=== PATIENT | female | born 1980 | race Caucasian/White ===

== ENCOUNTER 2020-06-20 12:54 | Outpatient (REF) | payer OTHER, SELFPAY ==
[2020-06-21 09:22] LABS: BV Int Neg Control Negative (Negative); BV Int Pos Control Positive (Positive)
[2020-06-21 13:32] LABS: C. trachomatis RNA TMA NOT DETECTED (NOT DETECTED); N. gonorrhoeae RNA TMA NOT DETECTED (NOT DETECTED)
== END 2020-06-20 12:55 | disposition home or self-care (01) ==
LOC: HO.LAB 12:54
PROVIDERS: PCP Internal Medicine Geriatric Medicine; Visit Provider Advanced Practice Midwife
DX: R10.2 Pelvic and perineal pain (principal); N84.1 Polyp of cervix uteri; Z31.69 Encounter for other general counseling and advice on procreation
CPT/HCPCS: 36415; 81003; 87480; 87491; 87510; 87591; 87660; 99202

== ENCOUNTER 2020-06-22 09:31 | Outpatient (REF) | payer OTHER, SELFPAY ==
--- NOTE | ~2020-06-22 | MM_ITS ---
EXAMINATION: MM SCREENING DIGITAL BREAST TOMOSYNTHESIS, BILATERAL CLINICAL INFORMATION: Screening. Asymptomatic. The lifetime risk of breast cancer based on the Tyrer-Cuzick Model is 10.5%. COMPARISON: Mammography: None. TECHNIQUE: Digital breast tomosynthesis is performed in both the craniocaudal and mediolateral oblique views along with computer-aided detection (CAD). Synthesized 2D images are generated from the tomosynthesis. FINDINGS: The breasts are extremely dense, which lowers the sensitivity of mammography (ACR BI-RADS breast composition Category d). No abnormal dominant mass or suspicious grouping of microcalcifications identified within the left breast. No region of architectural distortion identified. Within the right breast on mediolateral oblique projection, there is question of a 1.6 x 1.7 cm partially circumscribed density retroareolar region but which I cannot definitely find a correlate on craniocaudal view. This may represent a breast lobule or possible solid mass and spot compression film is recommended in mediolateral oblique projection. MM/MM tomosynthesis screening BI IMPRESSION: Question retroareolar left breast density for further evaluation as described. ASSESSMENT: BI-RADS 0: Incomplete - Need Additional Imaging Evaluation RECOMMENDATION: 1. Additional views of the left breast. 2. Targeted ultrasound if warranted after review of the additional views. 3. Radiology department staff will contact the patient for additional imaging. This patient's information was entered into a reminder system with a target due date for their next mammogram.
== END 2020-06-22 09:32 | disposition home or self-care (01) ==
LOC: HO.MAMMO 09:31
PROVIDERS: Visit Provider Internal Medicine Geriatric Medicine
DX: Z12.31 Encounter for screening mammogram for malignant neoplasm of breast (principal)
CPT/HCPCS: 77063; 77067

== ENCOUNTER 2020-06-28 14:02 | Outpatient (REF) | payer OTHER, SELFPAY ==
--- NOTE | ~2020-06-28 | MM_ITS ---
EXAMINATION: MM DIAGNOSTIC DIGITAL BREAST TOMOSYNTHESIS, RIGHT US DIAGNOSTIC ULTRASOUND BREAST, RIGHT CLINICAL INFORMATION: Recall from baseline exam for question of parenchymal asymmetry retroareolar right breast. COMPARISON: Mammography: 06/22/2020 (baseline). TECHNIQUE: Digital breast tomosynthesis is performed. 2D images are generated from the tomosynthesis. The following views are obtained: 3-D ML, 3-D spot MLO x2 Ultrasound right breast is targeted to the retroareolar position 7:00 through 11:00 position. Grayscale imaging and color Doppler are performed without and with harmonics. FINDINGS: The breasts are extremely dense, which lowers the sensitivity of mammography (ACR BI-RADS breast composition Category d). The additional views show no mass or architectural abnormality. Targeted ultrasound right breast demonstrates no cystic or solid mass or architectural abnormality. Results are discussed with the patient at time of visit, with assistance of an seismic interpreter. MM/MM tomosynthesis added views R IMPRESSION: Additional mammographic views show no persistent asymmetric density. Unremarkable targeted right breast ultrasound. ASSESSMENT: BI-RADS 1: Negative RECOMMENDATION: Routine annual mammography screening. This patient's information was entered into a reminder system with a target due date for their next mammogram.
== END 2020-06-28 14:03 | disposition home or self-care (01) ==
LOC: HO.MAMMO 14:02
PROVIDERS: PCP Internal Medicine Geriatric Medicine; Visit Provider Internal Medicine Geriatric Medicine
DX: N64.89 Other specified disorders of breast (principal)
CPT/HCPCS: 76642; 77061; 77065

== ENCOUNTER 2020-07-01 11:18 | Outpatient (REF) | payer OTHER, SELFPAY | END 2020-07-01 11:19 | disposition home or self-care (01) | LOC: HO.LAB 11:18 | PROVIDERS: PCP Internal Medicine Geriatric Medicine; Visit Provider Obstetrics & Gynecology | DX: N84.1 Polyp of cervix uteri (principal); D21.9 Benign neoplasm of connective and other soft tissue, unspecified | CPT/HCPCS: 57500; 88305; 99212 ==

== ENCOUNTER → 2020-07-14 11:50 | Outpatient (BNVA) | payer OTHER, SELFPAY | PROVIDERS: PCP Internal Medicine Geriatric Medicine; Visit Provider Obstetrics & Gynecology ==

== ENCOUNTER 2020-08-15 07:51 | Outpatient (REF) | payer OTHER, SELFPAY ==
[2020-08-15 10:09] LABS: HCG Quantitative 6809 mIU/mL
[2020-08-16 09:29] LABS: CT PCR NOT DETECTED (Not Detect.); NG PCR NOT DETECTED (Not Detect.)
== END 2020-08-15 07:52 | disposition home or self-care (01) ==
LOC: HO.LAB 07:51
PROVIDERS: PCP Internal Medicine Geriatric Medicine; Visit Provider Advanced Practice Midwife
DX: Z11.3 Encounter for screening for infections with a predominantly sexual mode of transmission (principal); R10.2 Pelvic and perineal pain; N92.6 Irregular menstruation, unspecified
CPT/HCPCS: 81025; 84702; 87491; 87591; 99212

== ENCOUNTER 2020-08-25 12:14 | Outpatient (REF) | payer OTHER, SELFPAY ==
--- NOTE | ~2020-08-25 | US_ITS ---
EXAMINATION: US OBSTETRICAL ULTRASOUND CLINICAL INFORMATION: Irregular menstruation. COMPARISON: None. LMP: 07/07/2020. Gestational age by maternal dates is 7 weeks 0 days. Estimated date of delivery by maternal dates is 04/13/2021. TECHNIQUE: Transabdominal first trimester OB ultrasound FINDINGS: There is a single intrauterine gestational sac with visible yolk sac, embryo/fetus, and cardiac activity. There is no significant subchorionic hemorrhage or hematoma. There is a large uterine fibroid in the left fundus adjacent to the gestational sac that measures 9.1 x 6.4 x 7.8 cm. HR: 109 beats per minute. CRL (crown rump length): 0.83 cm (6 weeks 6 days +/- 4 days). EBONY (estimated date of delivery): 04/14/2021 +/- 4 days. MATERNAL ADNEXA: The right maternal ovary measures 1.9 x 0.8 x 1.7 cm. The left maternal ovary measures 2.5 x 1.5 x 2.1 cm. There is a small 1.3 x 0.9 x 1.3 cm cyst. There is no significant maternal adnexal mass. No maternal pelvic ascites. US/US OB <= 14 weeks fetus IMPRESSION: 1. Single intrauterine gestation with ultrasound gestational age of 6 weeks 6 days +/- 4 days. 2. Estimated date of delivery is 04/14/2021 +/- 4 days. 3. low normal heart rate of 109 bpm. 4. large left fundal uterine fibroid abutting the gestational sac measuring 9.1 x 6.4 x 7.8 cm.
== END 2020-08-25 12:15 | disposition home or self-care (01) ==
LOC: HO.US 12:14
PROVIDERS: Visit Provider Advanced Practice Midwife
DX: O09.521 Supervision of elderly multigravida, first trimester (principal); Z3A.01 Less than 8 weeks gestation of pregnancy
CPT/HCPCS: 76801

== ENCOUNTER 2020-09-08 03:05 | Emergency (ER) | payer OTHER, SELFPAY ==
--- NOTE | ~2020-09-08 | US_ITS ---
EXAMINATION: US OBSTETRICAL ULTRASOUND CLINICAL INFORMATION: Vaginal bleeding COMPARISON: 08/25/2020. LMP: 07/07/2020. TECHNIQUE: Transabdominal sonographic imaging of the pelvis. FINDINGS: Prominent uterine fibroid at the fundus measuring 8.8 x 7.2 x 8.5 cm. There is a single intrauterine gestational sac with visible yolk sac and fetus. There is no motion detected. No heart rate detected. HR: 0 beats per minute. CRL (crown rump length): 1.0 cm (7 weeks 1 day +/- 4 days). Of note, on the prior ultrasound 2 weeks ago gestational age by ultrasound was 6 weeks 4 days, therefore showing no significant growth. MATERNAL ADNEXA: The right maternal ovary measures 2.1 x 1.7 x 1.2 cm. No adnexal mass. The left maternal ovary measures 3.2 x 2.5 x 2.2 cm. No adnexal mass. No maternal pelvic ascites. US/US OB <= 14 weeks fetus IMPRESSION: Intrauterine now with lack of heart rate and no significant growth from prior imaging. This is consistent with demise. This critical result was discussed with Heena Lee MD by telephone at 09/08/2020 5:51 AM and it was ascertained that the content and urgency of the report was understood at the time of direct communication.
[2020-09-08 03:22] VITALS: BP 116/74; PULSE 68; RESP 17; TEMP 36.8; O2SAT 100; BMI 25.8
[2020-09-08 03:41] LABS: Glucose Urine UA NEG (NEG); Leukocyte Esterase Urine NEG (NEG); Nitrite Urine NEG (NEG); Specific Gravity - Urine 1.025 (1.005-1.025); Urine Blood 1+ (NEG); Urine Ketones NEG (NEG); Urine Protein NEG (NEG-TRACE)
[2020-09-08 03:46] LABS: Appearance Urine CLEAR; Color Urine YELLOW
[2020-09-08 03:47] LABS: UPreg QC Valid YES; Urine Pregnancy POSITIVE (NEGATIVE)
[2020-09-08 03:53] LABS: Bacteria Urine 2+ /LPF; Mucus Urine 1+ /LPF; Squamous Epithelial Cell Urine 1+ /LPF
--- NOTE | 2020-09-08 04:10 | ED.PREGNANCY ---
HPI - General Chief complaint: Vaginal Bleeding Stated complaint: 9 Weeks /Spotting Time Seen by Provider: 09/08/20 04:00 Source: patient Mode of arrival: ambulatory Limitations: no limitations History of Present Illness HPI Narrative: Patient comes emergency room complaining of vaginal bleeding. Patient is a at 9 weeks of gestational age. Patient states that her has been unremarkable until this morning, patient went to the bathroom and when she wiped, she saw a blood clot. Patient denies dysuria, no abdominal pain. MD Complaint: vaginal bleeding Related Data Allergies Allergy/AdvReac Type Severity Reaction Status Date / Time No Known Allergies Allergy Verified 09/08/20 03:21 [No Known Allergies*] Review of Systems Review of Systems: Constitutional : No Weight loss, No Fever, No Chills, No Night Sweats, No Fatigue, No Malaise ENT/Mouth : No Hearing loss, No Ear Pain, No Nasal Congestion, No Sinus Pain, No Hoarseness, No sore throat, No Rhinorrhea, No Swallowing Difficulty Eyes: No Eye Pain, No Swelling, No Redness, No Foreign Body, No Discharge, No Vision Changes Cardiovascular : No Chest Pain, No SOB, No Dyspnea on Exertion, No Orthopnea, No Edema, No Palpitations Respiratory : No Cough, No Sputum, No Wheezing, No Smoke Exposure, No Dyspnea Gastrointestinal : No Nausea, No Vomiting, No Diarrhea, No Constipation, No abdominal Pain, No Hematochezia, No Melena Genitourinary : Complaining of 1 episode of vaginal bleeding, No Dysuria, No Urinary Frequency, No Hematuria, No Urinary Incontinence, No Urgency, No Flank Pain, No Urinary Flow Changes, No Hesitancy Musculoskeletal : No joint pain, No Myalgias, No Joint Swelling Skin : No Skin Lesions, No rash Neuro : No Weakness, No Numbness, No Paresthesias, No Loss of Consciousness, No Dizziness, No Headache Psych : No Anxiety/Panic, No Depression, No SI/HI/AH/VH, No Social Issues, Heme/Lymph: No Bruising, No Bleeding,No Lymphadenopathy Endocrine : No Polyuria, No Polydipsia, No Temperature Intolerance PMFSH Past Medical History Medical History Abscess of Bartholin's gland Denial Family History Family History Sister Diabetes Father Heart attack Mother Thyroid disease Social History Social History Alcohol intake: current Advance Directives: No Advance Directives Information Provided: No Patient : Yes Physical Exam Vital Signs: Vital Signs: Last Vital Signs Temp 98.2 F 09/08/20 03:22 Pulse 70 09/08/20 04:42 Resp 16 09/08/20 04:42 BP 111/64 09/08/20 04:42 Pulse Ox 100 09/08/20 04:42 Body Mass Index 25.8 Appearance: Alert. Oriented X3. No acute distress. Eyes: Pupils equal, round and reactive to light. ENT: Pharynx normal. Neck: Normal inspection. Neck supple. No lymph nodes noted. No crepitus CVS: Normal heart rate and rhythm. Pulses normal. Normal S1 and S2 Respiratory: No respiratory distress. Breath sounds normal. No Wheezing. No rales Abdomen: Soft and nontender. No rigidity. No distention. : Cervical os is open, scant vaginal bleeding Skin: Skin warm and dry. Normal skin color. Normal skin turgor. Extremities: No lower extremity edema. No lower extremity edema. No Lacerations. No Rash Neuro: Oriented X 3. No motor deficit. No sensory deficit. Moving all extermities. No slurred speech. Course Course Course Narrative: I discussed with the patient that she has a demise. I discussed the patient with Dr. Kirk. At the moment, no treatment recommended here in the emergency room. Patient is to follow-up with the OBGYN office, they will discuss with her different options. MDM - OB/Uterine Contractions Lab Data Result diagrams: 09/08/20 04:49 09/08/20 04:49 Labs: Lab Results 09/08/20 09/08/20 09/08/20 Range/Units 03:32 03:32 04:49 WBC 7.2 (4.8-10.8) X10*3/uL RBC 4.15 L (4.20-5.50) X10*6/uL Hgb 11.4 L (12.0-16.0) g/dl Hct 35.5 L (37-47) % MCV 85.5 (80-98) fL MCH 27.5 (27.0-33.0) pg MCHC 32.1 (31.0-35.0) g/dl RDW 12.7 (11.0-16.0) % Plt Count 206 (160-400) X10*3/uL MPV 12.6 H (9.4-12.3) fL Immature Gran % (Auto) 0.1 (0.0-0.4) % Neut % (Auto) 52.5 (45-73) % Lymph % (Auto) 36.8 (20-40) % [place] % (Auto) 8.1 (2-11) % Eos % (Auto) 2.1 (0-4) % Baso % (Auto) 0.4 (0-2) % Lymph # (Auto) 2.6 (1.2-4.9) X10*3/uL [place] # (Auto) 0.6 (0.1-1.2) X10*3/uL Eos # (Auto) 0.2 (0.0-0.4) X10*3/uL Baso # (Auto) 0.0 (0.0-0.2) X10*3/uL Abs Immat Gran (auto) 0.01 (0.00-0.03) X10*3/uL Absolute Neuts (auto) 3.8 (2.0-8.3) X10*3/uL Absolute Nucleated RBC 0.000 (0.0-0.012) X10*3/uL Nucleated RBC % (auto) 0.0 (0.0-0.2) /100WBC Sodium (135-145) mmol/L Potassium (3.3-5.1) mmol/L Chloride (96-108) mmol/L Carbon Dioxide (22-29) mmol/L Anion Gap (12-20) BUN (9-16) mg/dL Creatinine (0.5-1.4) mg/dL Estim Creat Clear Calc Estimated GFR Random Glucose (60-115) mg/dL Calcium (8.4-10.2) mg/dL Total Bilirubin (0.0-1.0) mg/dL Direct Bilirubin (0.0-0.5) mg/dL AST (5-31) U/L ALT (0-31) U/L Alkaline Phosphatase (39-117) U/L Total Protein (6.5-8.0) g/dL Albumin (3.5-5.0) g/dL Beta HCG, Quant mIU/mL Urine Color YELLOW Urine Appearance CLEAR Urine pH 6.0 (5.0-8.0) Ur Specific [place] 1.025 (1.005-1.025) Urine Protein NEG (NEG-TRACE) MG/DL Urine Glucose (UA) NEG (NEG) MG/DL Urine Ketones NEG (NEG) MG/DL Urine Blood 1+ H (NEG) Urine Nitrite NEG (NEG) Ur Leukocyte Esterase NEG (NEG) Urine RBC 1-4 (0) /HPF Urine WBC 1-4 (0-4) /HPF Ur Squamous Epith Cells 1+ /LPF Urine Bacteria 2+ /LPF Urine Mucus 1+ /LPF Urine Test POSITIVE H (NEGATIVE) Blood Type 09/08/20 09/08/20 Range/Units 04:49 04:49 WBC (4.8-10.8) X10*3/uL RBC (4.20-5.50) X10*6/uL Hgb (12.0-16.0) g/dl Hct (37-47) % MCV (80-98) fL MCH (27.0-33.0) pg MCHC (31.0-35.0) g/dl RDW (11.0-16.0) % Plt Count (160-400) X10*3/uL MPV (9.4-12.3) fL Immature Gran % (Auto) (0.0-0.4) % Neut % (Auto) (45-73) % Lymph % (Auto) (20-40) % [place] % (Auto) (2-11) % Eos % (Auto) (0-4) % Baso % (Auto) (0-2) % Lymph # (Auto) (1.2-4.9) X10*3/uL [place] # (Auto) (0.1-1.2) X10*3/uL Eos # (Auto) (0.0-0.4) X10*3/uL Baso # (Auto) (0.0-0.2) X10*3/uL Abs Immat Gran (auto) (0.00-0.03) X10*3/uL Absolute Neuts (auto) (2.0-8.3) X10*3/uL Absolute Nucleated RBC (0.0-0.012) X10*3/uL Nucleated RBC % (auto) (0.0-0.2) /100WBC Sodium 137 (135-145) mmol/L Potassium 4.1 (3.3-5.1) mmol/L Chloride 106 (96-108) mmol/L Carbon Dioxide 23 (22-29) mmol/L Anion Gap 12 (12-20) BUN 6 L (9-16) mg/dL Creatinine 0.65 (0.5-1.4) mg/dL Estim Creat Clear Calc 117.3 Estimated GFR > 60 Random Glucose 89 (60-115) mg/dL Calcium 8.8 (8.4-10.2) mg/dL Total Bilirubin 0.4 (0.0-1.0) mg/dL Direct Bilirubin 0.2 (0.0-0.5) mg/dL AST 17 (5-31) U/L ALT 23 (0-31) U/L Alkaline Phosphatase 61 (39-117) U/L Total Protein 6.9 (6.5-8.0) g/dL Albumin 3.9 (3.5-5.0) g/dL Beta HCG, Quant 27173 mIU/mL Urine Color Urine Appearance Urine pH (5.0-8.0) Ur Specific [place] (1.005-1.025) Urine Protein (NEG-TRACE) MG/DL Urine Glucose (UA) (NEG) MG/DL Urine Ketones (NEG) MG/DL Urine Blood (NEG) Urine Nitrite (NEG) Ur Leukocyte Esterase (NEG) Urine RBC (0) /HPF Urine WBC (0-4) /HPF Ur Squamous Epith Cells /LPF Urine Bacteria /LPF Urine Mucus /LPF Urine Test (NEGATIVE) Blood Type A Positive Imaging Data US - abdomen: Radiologist's impression: FINDINGS: Prominent uterine fibroid at the fundus measuring 8.8 x 7.2 x 8.5 cm. There is a single intrauterine gestational sac with visible yolk sac and fetus. There is no motion detected. No heart rate detected. HR: 0 beats per minute. CRL (crown rump length): 1.0 cm (7 weeks 1 day +/- 4 days). Of note, on the prior ultrasound 2 weeks ago gestational age by ultrasound was 6 weeks 4 days, therefore showing no significant growth. MATERNAL ADNEXA: The right maternal ovary measures 2.1 x 1.7 x 1.2 cm. No adnexal mass. The left maternal ovary measures 3.2 x 2.5 x 2.2 cm. No adnexal mass. No maternal pelvic ascites. US/US OB <= 14 weeks fetus IMPRESSION: Intrauterine now with lack of heart rate and no significant growth from prior imaging. This is consistent with demise. Discharge Plan Discharge Clinical Impression: demise due to miscarriage Patient Disposition: Home, Self-Care Instructions: Miscarriage (ED) Additional Instructions: He will receive a phone call from the OBGYN office. Please follow-up with your primary care physician tomorrow. If you have any worsening or new symptoms, please return to the emergency room or call [phone] Referrals: Fran Kirk MD [Physician] - 09/08/20 11:00 am ( demise)
[2020-09-08 04:42] VITALS: BP 111/64; PULSE 70; RESP 16; O2SAT 100
[2020-09-08 04:54] LABS: MANUAL DIFF FLAG NO
[2020-09-08 04:59] LABS: Basophils Percent Auto 0.4 % (0-2); Eosinophils Absolute Auto 0.2 X10*3/uL (0.0-0.4); Eosinophils Percent Auto 2.1 % (0-4); Hematocrit 35.5 % (37-47); Hemoglobin 11.4 g/dl (12.0-16.0); Imm Gran Abs Auto 0.01 X10*3/uL (0.00-0.03); Imm Gran Pct Auto 0.1 % (0.0-0.4); Lymphocytes Absolute Auto 2.6 X10*3/uL (1.2-4.9); Lymphocytes Percent Auto 36.8 % (20-40); Mean Corpuscular HGB Conc 32.1 g/dl (31.0-35.0); Mean Corpuscular Hemoglobin 27.5 pg (27.0-33.0); Mean Corpuscular Volume 85.5 fL (80-98); Mean Platelet Volume 12.6 fL (9.4-12.3); Monocytes Absolute Auto 0.6 X10*3/uL (0.1-1.2); Monocytes Percent Auto 8.1 % (2-11); Neutrophils Absolute Auto 3.8 X10*3/uL (2.0-8.3); Neutrophils Percent Auto 52.5 % (45-73); Platelet Count 206 X10*3/uL (160-400); Red Blood Count 4.15 X10*6/uL (4.20-5.50); Red Cell Distribution Width 12.7 % (11.0-16.0); White Blood Count 7.2 X10*3/uL (4.8-10.8)
[2020-09-08 05:24] LABS: Alanine Aminotransferase 23 U/L (0-31); Albumin Level 3.9 g/dL (3.5-5.0); Alkaline Phosphatase 61 U/L (39-117); Anion Gap 12 (12-20); Aspartate Amino Transferase 17 U/L (5-31); Bilirubin Direct 0.2 mg/dL (0.0-0.5); Bilirubin Total 0.4 mg/dL (0.0-1.0); Blood Urea Nitrogen 6 mg/dL (9-16); Calcium 8.8 mg/dL (8.4-10.2); Carbon Dioxide 23 mmol/L (22-29); Chloride 106 mmol/L (96-108); Creatinine Clr Calc Pharmacy 117.3; Estimated Glomerular Filt Rate > 60; Glucose Random 89 mg/dL (60-115); Potassium 4.1 mmol/L (3.3-5.1); Sodium 137 mmol/L (135-145); Total Protein 6.9 g/dL (6.5-8.0)
[2020-09-08 05:31] LABS: HCG Quantitative 12038 mIU/mL
== END 2020-09-08 07:37 | disposition home or self-care (01) ==
PROVIDERS: Emergency Provider Emergency Medicine; PCP Internal Medicine Geriatric Medicine
DX: O03.9 Complete or unspecified spontaneous abortion without complication (principal)
CPT/HCPCS: 36415; 76801; 80048; 80076; 81001; 81025; 84702; 85025; 86900; 86901; 99212; 99284

== ENCOUNTER 2020-09-09 17:45 | Emergency (ER) | payer OTHER, SELFPAY ==
[2020-09-09 18:13] VITALS: BP 116/77; PULSE 87; RESP 22; TEMP 36.5; O2SAT 99; BMI 55.5
[2020-09-09 19:06] VITALS: BP 102/63; PULSE 78; RESP 18; TEMP 36.9; O2SAT 99
--- NOTE | 2020-09-09 19:07 | PC.NURSE ---
describing heavy bleeding with large clots since yestrday am. changed pad x 5 since 1500. no palor lower conjunctiva. denies dizziness but feels chills. is warm to touch but afebrile. awaits ED doc. fluids running.
--- NOTE | 2020-09-09 20:03 | ED_ITS ---
HPI - Female Genitourinary General Chief complaint: Vaginal Bleeding Stated complaint: miscarriage bleeding nonstop Source: patient and family Mode of arrival: ambulatory Limitations: language barrier History of Present Illness HPI Narrative: 40-year-old female presents with vaginal bleeding, passing large blood clots, and abdominal pain after being treated by gynecology for demise. 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 She does not report any fevers or chills, chest pain or pressure, palpitations, abdominal distention, edema, shortness of breath, shortness of breath on exertion, headaches, dizziness, lightheadedness or changes in vision. MD elicited complaint: vaginal bleeding Pertinent past history: other ( demise) Location of symptoms: vaginal and pelvis Severity: severe Severity scale (1-10): 9 Quality of pain: cramping and aching Consistency: intermittent Vaginal bleeding: heavy, dark red, clots and POC/tissue Exacerbating factors: movement and palpation Relieving factors: none Associated symptoms: denies other symptoms Sexual activity: Yes Patient : Yes Related Data Previous Rx's Medication Instructions Recorded acetaminophen 650 mg 650 mg PO Q8H #60 tab 09/08/20 tablet,extended release ibuprofen 800 mg tablet 800 mg PO Q8H #60 tab 09/08/20 misoprostol 200 mcg tablet 800 mcg PO ONCE #4 tab 09/08/20 ondansetron 8 mg disintegrating 8 mg PO Q8H PRN #10 tab 09/08/20 tablet oxycodone 5 mg capsule 5 mg PO Q6H PRN #10 cap 09/08/20 Allergies Allergy/AdvReac Type Severity Reaction Status Date / Time No Known Allergies Allergy Verified 09/09/20 18:13 [No Known Allergies*] Review of Systems Review of Systems: Constitutional: No Fever, No Chills ENT/Mouth: No sore throat, No Rhinorrhea Eyes: No Eye Pain, No Redness Cardiovascular: No Chest Pain, No SOB Respiratory: No Cough, No Sputum, No Wheezing Gastrointestinal: positive Nausea, No Vomiting, No Diarrhea, positive abdominal pain, Genitourinary: positive irregular bleeding, No Dysuria, No Urinary Frequency, positive pelvic pain Musculoskeletal: No Myalgias Skin: No rash Neuro: No Weakness, No Headache Psych: No Anxiety/Panic, No Depression Heme/Lymph: No bruising, No Lymphadenopathy Endocrine: No Polyuria, No Polydipsia Yes all other systems are reviewed and are negative [facility] Past Medical History Attestation statement: The following information was validated with the patient. Source: old records reviewed Medical History Abscess of Bartholin's gland Denial Family History Family History Sister Diabetes Father Heart attack Mother Thyroid disease Social History Social History Alcohol intake: never Patient Tobacco Use Status: Never used Tobacco Physical Exam Vital Signs: Vital Signs: Last Vital Signs Temp 98.3 F 09/09/20 23:08 Pulse 64 09/09/20 23:08 Resp 16 09/09/20 23:08 BP 113/68 09/09/20 23:08 Pulse Ox 97 09/09/20 21:42 Body Mass Index 55.5 Appearance: Alert. Oriented X3. Moderate distress. Eyes: Pupils equal, round and reactive to light. ENT: Pharynx normal. Moist mucous membranes Neck: Normal inspection. Neck supple. CVS: Normal heart rate and rhythm. Pulses normal. Respiratory: No respiratory distress. Breath sounds normal. Abdomen: Soft and diffusely tender but negative Suarez's, McBurney's, obturator and psoas, suprapubic tenderness noted to deep palpation. Skin: Skin warm and dry. Normal skin color. Normal skin turgor. Extremities: No lower extremity edema. Neuro: No motor deficit. No sensory deficit. : Speculum Exam - Vagina: normal appearance of the vagina and vaginal bleeding Speculum Exam - Cervix: normal appearance of the cervix and normal palpation Bimanual exam- vagina & uterus: normal bimanual exam, normal palpation, uterine mobility normal and enlarged Bimanual Exam- Adnexa, other: normal adnexae OB/external & speculum: vaginal bleeding Course Course Course Narrative: 40-year-old female presents with vaginal bleeding with large clots and products of conception. She was seen on 09/08 and was noted to have demise with no amniotic fluid in the gestational sac. Was treated by GALA Peralta with oral misoprostol, will order CBC, Chem 7, lactic, cultures, and complete pelvic exam. Will order type and screen. Product of conception past during an episode of cramping, collected and sent to lab. I did discuss this case with on-call Dr Kirk, plan is to monitor for several more hours for bleeding, then discharge home and have patient have patient follow-up with OBGYN in the office. Further imaging is not indicated at this time. Patient states to feel much better, cramping and bleeding has subsided, has not had to change pad in over 2 hours. Plan is to discharge home with detailed instructions regarding missed , products of retained secundum, and signs and symptoms indicating need for immediate medical attention. powder hand utilized for all correspondence. Google translate utilized for d ischarge instructions. Consultations Consultation #1: Reagan Time: 21:00 MDM - Female Genitourinary MDM Narrative Medical decision making narrative: Delivery of demised fetus Medical Records Attestation: I reviewed the patient's medical records. Lab Data Attestation: I reviewed the patient's lab results. Result diagrams: 09/09/20 19:55 09/09/20 19:55 Labs: Lab Results 09/09/20 09/09/20 09/09/20 Range/Units 19:55 19:55 19:55 WBC 12.1 H (4.8-10.8) X10*3/uL RBC 3.99 L (4.20-5.50) X10*6/uL Hgb 11.0 L (12.0-16.0) g/dl Hct 34.7 L (37-47) % MCV 87.0 (80-98) fL MCH 27.6 (27.0-33.0) pg MCHC 31.7 (31.0-35.0) g/dl RDW 12.5 (11.0-16.0) % Plt Count 213 (160-400) X10*3/uL MPV 12.6 H (9.4-12.3) fL Immature Gran % (Auto) 0.2 (0.0-0.4) % Neut % (Auto) 71.1 (45-73) % Lymph % (Auto) 19.7 L (20-40) % [place] % (Auto) 7.2 (2-11) % Eos % (Auto) 1.4 (0-4) % Baso % (Auto) 0.4 (0-2) % Lymph # (Auto) 2.4 (1.2-4.9) X10*3/uL [place] # (Auto) 0.9 (0.1-1.2) X10*3/uL Eos # (Auto) 0.2 (0.0-0.4) X10*3/uL Baso # (Auto) 0.1 (0.0-0.2) X10*3/uL Abs Immat Gran (auto) 0.03 (0.00-0.03) X10*3/uL Absolute Neuts (auto) 8.6 H (2.0-8.3) X10*3/uL Absolute Nucleated RBC 0.000 (0.0-0.012) X10*3/uL Nucleated RBC % (auto) 0.0 (0.0-0.2) /100WBC PT 14.1 H (10.8-13.0) SEC INR 1.2 H (0.9-1.1) APTT 31.0 (24.1-38.0) SEC Sodium 137 (135-145) mmol/L Potassium 3.4 (3.3-5.1) mmol/L Chloride 106 (96-108) mmol/L Carbon Dioxide 23 (22-29) mmol/L Anion Gap 11 L (12-20) BUN 7 L (9-16) mg/dL Creatinine 0.67 (0.5-1.4) mg/dL Estim Creat Clear Calc 172.6 Estimated GFR > 60 Random Glucose 124 H D (60-115) mg/dL Lactic Acid (0.5-2.0) mmol/L Calcium 8.2 L D (8.4-10.2) mg/dL Beta HCG, Quant 6495 mIU/mL Blood Type Antibody Screen 09/09/20 09/09/20 Range/Units 19:55 20:26 WBC (4.8-10.8) X10*3/uL RBC (4.20-5.50) X10*6/uL Hgb (12.0-16.0) g/dl Hct (37-47) % MCV (80-98) fL MCH (27.0-33.0) pg MCHC (31.0-35.0) g/dl RDW (11.0-16.0) % Plt Count (160-400) X10*3/uL MPV (9.4-12.3) fL Immature Gran % (Auto) (0.0-0.4) % Neut % (Auto) (45-73) % Lymph % (Auto) (20-40) % [place] % (Auto) (2-11) % Eos % (Auto) (0-4) % Baso % (Auto) (0-2) % Lymph # (Auto) (1.2-4.9) X10*3/uL [place] # (Auto) (0.1-1.2) X10*3/uL Eos # (Auto) (0.0-0.4) X10*3/uL Baso # (Auto) (0.0-0.2) X10*3/uL Abs Immat Gran (auto) (0.00-0.03) X10*3/uL Absolute Neuts (auto) (2.0-8.3) X10*3/uL Absolute Nucleated RBC (0.0-0.012) X10*3/uL Nucleated RBC % (auto) (0.0-0.2) /100WBC PT (10.8-13.0) SEC INR (0.9-1.1) APTT (24.1-38.0) SEC Sodium (135-145) mmol/L Potassium (3.3-5.1) mmol/L Chloride (96-108) mmol/L Carbon Dioxide (22-29) mmol/L Anion Gap (12-20) BUN (9-16) mg/dL Creatinine (0.5-1.4) mg/dL Estim Creat Clear Calc Estimated GFR Random Glucose (60-115) mg/dL Lactic Acid 1.5 (0.5-2.0) mmol/L Calcium (8.4-10.2) mg/dL Beta HCG, Quant mIU/mL Blood Type A Positive Antibody Screen NEGATIVE Discharge Plan Discharge Clinical Impression: Incomplete Patient Disposition: Home, Self-Care Instructions: Miscarriage (ED) Additional Instructions: Se le evalu? por calambres abdominales, sangrado vaginal y muerte de un feto despu?s de recibir medicamentos para el aborto debido a la muerte . Si el sangrado excesivo persiste o tiene fiebre y escalofr?os, regrese al departamento de emergencias. Por favor descanse, no levante nada que pese m?s de 5 libras alva los pr?xi mos 5 d?as. Permanezca en reposo p?lvico, sin nada en la vagina, sin tampones ni actividad sexual ni misa?n otro dispositivo en la vagina hasta que dutch a groves obstetra. Debe hacer un seguimiento con un gineco-obstetra. Daniel por elegir diego departamento de emergencias para groves evaluaci?n. Poli un seguimiento con el m?dico de atenci?n primaria seg?n sea necesario. Regrese al departamento de emergencias por cualquier s?ntoma nuevo, preocupante o que empeore. You were evaluated for abdominal cramping, vaginal bleeding, and passing of a fetus after receiving medications for due to demise. If excessive bleeding persists or you develop fevers and chills please return to [facility]. Please rest, do not lift anything greater than 5 lb for the next 5 days. Please remain on pelvic rest, nothing in the vagina, no tampons or sexual activity or any other devices into the vagina until you see your OBGYN. You must follow-up with OBGYN. Thank you for choosing this emergency department for evaluation. Please follow-up with primary care physician as needed. Return to the emergency department for any new, concerning, or worsening symptoms. Prescriptions: No Action ibuprofen 800 mg tablet 800 mg PO Q8H Qty: 60 RF: 0 acetaminophen [Tylenol 8 Hour] 650 mg tablet extended release 650 mg PO Q8H Qty: 60 RF: 0 misoprostol 200 mcg tablet 800 mcg PO ONCE Qty: 4 RF: 1 oxycodone 5 mg capsule 5 mg PO Q6H PRN (Reason: pain) Qty: 10 RF: 0 ondansetron 8 mg tablet,disintegrating 8 mg PO Q8H PRN (Reason: nausea and vomiting) Qty: 10 RF: 0 Stand Alone Forms: Work/School Release Interventions: ED Discharge Assessment Last Done: 09/10/20 00:15 Discharge Date/Time: 09/09/20 23:30
[2020-09-09 20:04] LABS: MANUAL DIFF FLAG NO
[2020-09-09 20:08] LABS: Basophils Absolute Auto 0.1 X10*3/uL (0.0-0.2); Basophils Percent Auto 0.4 % (0-2); Eosinophils Absolute Auto 0.2 X10*3/uL (0.0-0.4); Eosinophils Percent Auto 1.4 % (0-4); Hematocrit 34.7 % (37-47); Imm Gran Abs Auto 0.03 X10*3/uL (0.00-0.03); Imm Gran Pct Auto 0.2 % (0.0-0.4); Lymphocytes Absolute Auto 2.4 X10*3/uL (1.2-4.9); Lymphocytes Percent Auto 19.7 % (20-40); Mean Corpuscular HGB Conc 31.7 g/dl (31.0-35.0); Mean Corpuscular Hemoglobin 27.6 pg (27.0-33.0); Mean Platelet Volume 12.6 fL (9.4-12.3); Monocytes Absolute Auto 0.9 X10*3/uL (0.1-1.2); Monocytes Percent Auto 7.2 % (2-11); Neutrophils Absolute Auto 8.6 X10*3/uL (2.0-8.3); Neutrophils Percent Auto 71.1 % (45-73); Platelet Count 213 X10*3/uL (160-400); Red Blood Count 3.99 X10*6/uL (4.20-5.50); Red Cell Distribution Width 12.5 % (11.0-16.0); White Blood Count 12.1 X10*3/uL (4.8-10.8)
[2020-09-09 20:17] LABS: INTERNATIONAL NORM RATIO 1.2 (0.9-1.1); Prothrombin Time 14.1 SEC (10.8-13.0)
[2020-09-09 20:23] LABS: Lactic Acid 1.5 mmol/L (0.5-2.0)
[2020-09-09 20:25] LABS: Anion Gap 11 (12-20); Blood Urea Nitrogen 7 mg/dL (9-16); Calcium 8.2 mg/dL (8.4-10.2); Carbon Dioxide 23 mmol/L (22-29); Chloride 106 mmol/L (96-108); Creatinine Clr Calc Pharmacy 172.6; Estimated Glomerular Filt Rate > 60; Glucose Random 124 mg/dL (60-115); Potassium 3.4 mmol/L (3.3-5.1); Sodium 137 mmol/L (135-145)
[2020-09-09 20:35] LABS: HCG Quantitative 6495 mIU/mL
[2020-09-09] MEDS: 0.9 % Sodium Chloride 1,000 ML 999 ML IVCONT (21:02)
[2020-09-09] MEDS: Morphine Sulfate 4 MG/ML CARTRIDGE IVPUSH (21:03)
[2020-09-09] MEDS: ondansetron HCL 4 MG/2 ML VIAL IVPUSH (21:04)
[2020-09-09 21:09] VITALS: BP 107/68; PULSE 76; RESP 18; O2SAT 98
--- NOTE | 2020-09-09 21:33 | PM.GYNCN ---
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 Peralta in the office yesterday and was counseled regarding options of treatment and was given Mifepristone with misoprostol. 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 - Review of Systems Review of Systems ROS Unobtainable: All systems reviewed & are unremarkable except as noted in HPI and below Cardiovascular: Denies Palpatations, Loss of consciousness and Chest pain Respiratory: Denies Cough, Wheezing and Shortness of breath Musculoskeletal: Denies Low back pain Gastrointestinal: Denies Heartburn, Constipation, Diarrhea, Nausea and Vomiting Genitourinary: Denies Pain with urination, Burning with urination and Urinary frequency Neurological: Denies Migranes Psychological: Denies Depression OB PMFSH Past Medical History Medical History Abscess of Bartholin's gland Denial Family History Family History Sister Diabetes Father Heart attack Mother Thyroid disease Social History Social History Alcohol intake: never Patient Tobacco Use Status: Never used Tobacco Advance Directives: No Advance Directives Information Provided: Yes Patient : Yes Meds Allergies Allergy/AdvReac Type Severity Reaction Status Date / Time No Known Allergies Allergy Verified 09/09/20 18:13 [No Known Allergies*] 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 Physical Exam Vitals Vital signs: Temp Pulse Resp BP Pulse Ox 98.5 F 76 18 107/68 98 09/09/20 19:06 09/09/20 21:09 09/09/20 21:09 09/09/20 21:09 09/09/20 21:09 Body Mass Index 55.5 Additional Comments: Pelvic exam reported by Lila Nunes NP, after passage of tissue Rangel gestational sac to cervical os is closed, no cervical motion tenderness, no uterine tenderness, mild bleeding 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 - Results Labs CBC & Chem 7: 09/09/20 19:55 09/09/20 19:55 Labs: Short CBC 09/09/20 Range/Units 19:55 WBC 12.1 H (4.8-10.8) X10*3/uL Hgb 11.0 L (12.0-16.0) g/dl Hct 34.7 L (37-47) % Plt Count 213 (160-400) X10*3/uL BMP 09/09/20 19:55 Sodium 137 Potassium 3.4 Chloride 106 Carbon Dioxide 23 BUN 7 L Creatinine 0.67 Calcium 8.2 L D Antibody Screen Antibody Screen NEGATIVE 09/09/20 20:26 Assessment and Plan (1) Complete : Status: Acute Discussed with Lila Nunes NP that since the patient passed gestational sac, followed by a slow down in the cramping and bleeding, pelvic exam showing a closed cervix and minimal vaginal bleeding, the clinical picture is of complete . Recommended a period of observation of 1-2 hours in the emergency room, if the patient does not have any more cramping or bleeding, the patient can be discharged home with warning signs of incomplete and infection, the patient is to call if any of the following occur, crampinlg, eeding, temperature equal and/or above 100.4, heavy vaginal bleeding, follow-up in the office in 1 week. I was consulted by phone regarding this patient, I have not seen or examined the patient emergency room
--- NOTE | 2020-09-09 21:40 | PC.NURSE ---
PT UNDERSTANDS TO USE THE COLLECTION HAT IN THE TOILET, AND PLACE ANY SANITARY PADS ON WASTE BASKET FOR US TO MONITOR. PT REPORTS THAT ONCE SHE PASSED THE LARGE CLOT/TUISSUE, HER ABDOMINAL CRAMPING STOPPED. PT REPORTS HER BLEEDING HAS ALSO SLOWED.
[2020-09-09 21:42] VITALS: BP 105/63; PULSE 65; RESP 16; O2SAT 97
[2020-09-09 23:08] VITALS: BP 113/68; PULSE 64; RESP 16; TEMP 36.8
--- NOTE | 2020-09-09 23:38 | PC.NURSE ---
no further cramping or bleeding.POC sent to lab for disposal, per provider direction.
== END 2020-09-09 23:30 | disposition home or self-care (01) ==
PROVIDERS: Nurse Practitioner Family; Emergency Provider Internal Medicine; PCP Internal Medicine Geriatric Medicine
DX: O03.9 Complete or unspecified spontaneous abortion without complication (principal)
CPT/HCPCS: 36415; 80048; 83605; 84702; 85025; 85610; 85730; 86850; 86900; 86901; 87040; 88305; 96361; 96374; 96375; 99284; 99285; J2270; J2405

== ENCOUNTER 2020-09-13 13:38 | Outpatient (REF) | payer MEDICAID, SELFPAY ==
[2020-09-13 14:49] LABS: HCG Quantitative 597 mIU/mL
== END 2020-09-13 13:39 | disposition home or self-care (01) ==
LOC: HO.LAB 13:38
PROVIDERS: PCP Internal Medicine Geriatric Medicine; Visit Provider Obstetrics & Gynecology
DX: O03.9 Complete or unspecified spontaneous abortion without complication (principal)
CPT/HCPCS: 36415; 84702

== ENCOUNTER 2020-09-21 09:50 | Outpatient (REF) | payer MEDICAID, SELFPAY ==
[2020-09-21 11:15] LABS: HCG Quantitative 51 mIU/mL
== END 2020-09-21 09:51 | disposition home or self-care (01) ==
LOC: HO.LAB 09:50
PROVIDERS: PCP Internal Medicine Geriatric Medicine; Visit Provider Obstetrics & Gynecology
DX: O03.9 Complete or unspecified spontaneous abortion without complication (principal); D21.9 Benign neoplasm of connective and other soft tissue, unspecified
CPT/HCPCS: 36415; 84702; 99212

== ENCOUNTER 2020-10-05 09:53 | Outpatient (REF) | payer MEDICAID, SELFPAY ==
[2020-10-05 11:21] LABS: HCG Quantitative 6 mIU/mL
== END 2020-10-05 09:54 | disposition home or self-care (01) ==
LOC: HO.LAB 09:53
PROVIDERS: PCP Internal Medicine Geriatric Medicine; Visit Provider Obstetrics & Gynecology
DX: O03.9 Complete or unspecified spontaneous abortion without complication (principal)
CPT/HCPCS: 36415; 84702

== ENCOUNTER → 2020-10-19 11:29 | Outpatient (BNVA) | payer MEDICAID, SELFPAY | PROVIDERS: PCP Internal Medicine Geriatric Medicine; Visit Provider Obstetrics & Gynecology ==

== ENCOUNTER 2020-10-21 10:30 | Outpatient (REF) | payer MEDICAID, SELFPAY ==
[2020-10-21 11:50] LABS: HCG Quantitative < 2 mIU/mL
== END 2020-10-21 10:31 | disposition home or self-care (01) ==
LOC: HO.LAB 10:30
PROVIDERS: PCP Internal Medicine Geriatric Medicine; Visit Provider Obstetrics & Gynecology
DX: O03.9 Complete or unspecified spontaneous abortion without complication (principal)
CPT/HCPCS: 36415; 84702

== ENCOUNTER 2023-01-15 09:01 | Outpatient (REF) | payer MEDICAID, SELFPAY | END 2023-01-15 09:02 | disposition home or self-care (01) | LOC: HO.MAMMO 09:01 | PROVIDERS: Visit Provider Internal Medicine Geriatric Medicine | DX: Z13.89 Encounter for screening for other disorder (principal) ==

== ENCOUNTER 2023-02-06 08:57 | Outpatient (REF) | payer MEDICAID, SELFPAY ==
--- NOTE | ~2023-02-06 | MM_ITS ---
EXAMINATION: MM SCREENING DIGITAL BREAST TOMOSYNTHESIS, BILATERAL CLINICAL INFORMATION: Screening. Asymptomatic. COMPARISON: Mammography: This study is compared with prior exams dating back to 2020. TECHNIQUE: Digital breast tomosynthesis is performed in both the craniocaudal and mediolateral oblique views along with computer-aided detection (CAD). Synthesized 2D images are generated from the tomosynthesis. FINDINGS: The breasts are heterogeneously dense, which may obscure small masses (ACR BI-RADS breast composition Category c). There are no significant masses, abnormal calcifications, or other abnormalities. MM/MM tomosynthesis screening BI IMPRESSION: No mammographic evidence of malignancy. ASSESSMENT: BI-RADS BI-RADS 1 - Negative RECOMMENDATION: Routine annual mammography screening. 1 year F/U This examination should not preclude the clinical evaluation of a suspicious palpable abnormality. This patient's information was entered into a reminder system with a target due date for their next mammogram.
== END 2023-02-06 08:58 | disposition home or self-care (01) ==
LOC: HO.MAMMO 08:57
PROVIDERS: PCP Internal Medicine Geriatric Medicine; Visit Provider Internal Medicine Geriatric Medicine
DX: Z12.31 Encounter for screening mammogram for malignant neoplasm of breast (principal)
CPT/HCPCS: 77063; 77067

== ENCOUNTER → 2023-02-06 09:00 | Outpatient (BNV) | payer MEDICAID, SELFPAY | PROVIDERS: PCP Internal Medicine Geriatric Medicine; Visit Provider Radiology Diagnostic Radiology | DX: Z12.31 Encounter for screening mammogram for malignant neoplasm of breast (principal) | CPT/HCPCS: 77063; 77067 ==

== ENCOUNTER 2023-06-17 15:06 | Outpatient (REF) | payer MEDICAID, SELFPAY ==
[2023-06-17 16:50] LABS: HCG Quantitative 605 mIU/mL
== END 2023-06-17 15:07 | disposition home or self-care (01) ==
LOC: HO.HHCL 15:06
PROVIDERS: Visit Provider Internal Medicine Geriatric Medicine
DX: Z34.91 Encounter for supervision of normal pregnancy, unspecified, first trimester (principal); Z3A.01 Less than 8 weeks gestation of pregnancy
CPT/HCPCS: 36415; 84702

== ENCOUNTER 2023-07-02 18:21 | Emergency (ER) | payer MEDICAID, SELFPAY ==
[2023-07-02 18:28] VITALS: BP 125/82; PULSE 80; RESP 20; TEMP 36.8; O2SAT 100; BMI 24.2
--- NOTE | 2023-07-02 19:18 | MHC.EDTECH ---
PATIENT BLOOD DRAWN AND RSV/COVID SWAB COLLECTED AND SENT TO LAB .
[2023-07-02 19:23] LABS: Hematocrit 38.8 % (37.0-47.0); Hemoglobin 12.9 g/dl (12.0-16.0); Mean Corpuscular HGB Conc 33.2 g/dl (31.0-35.0); Mean Corpuscular Volume 84.3 fL (80.0-98.0); Mean Platelet Volume 12.5 fL (9.4-12.3); Platelet Count 211 X10*3/uL (160-400); Red Cell Distribution Width 12.7 % (11.0-16.0)
[2023-07-02 19:26] LABS: WBC ABN SCTR FOR CBC 1
[2023-07-02 19:38] LABS: Alanine Aminotransferase 18 U/L (0-31); Albumin Level 4.5 g/dL (3.5-5.0); Alkaline Phosphatase 73 U/L (39-117); Anion Gap 13 (12-20); Aspartate Amino Transferase 17 U/L (5-31); Bilirubin Total 0.3 mg/dL (0.0-1.0); Blood Urea Nitrogen 9 mg/dL (9-16); Calcium 9.6 mg/dL (8.4-10.2); Carbon Dioxide 22 mmol/L (22-29); Chloride 105 mmol/L (96-108); Estimated Glomerular Filt Rate > 60; Glucose Random 76 mg/dL (60-115); Potassium 3.5 mmol/L (3.3-5.1); Sodium 136 mmol/L (135-145); Total Protein 8.2 g/dL (6.5-8.0)
[2023-07-02 19:59] LABS: Influenza A PCR NEGATIVE (Negative); Influenza B PCR NEGATIVE (Negative); Resp Syncy Virus RNA Qual PCR NEGATIVE (Negative); SARS COV2 PCR INHOUSE NEGATIVE (Negative)
[2023-07-02 20:01] LABS: Large Platelet PRESENT; Lymphocytes Percent Manual 33 % (20-40); Monocytes Percent Manual 3 % (2-11); Neutrophils Percent Manual 64 % (45-73); Platelet Estimate NORMAL (NORMAL); Platelet Morphology Comment NORMAL; RBC Morphology NORMAL
[2023-07-02 20:03] LABS: Toxic Vacuolation PRESENT
[2023-07-02 20:04] LABS: Lymphocytes Absolute Manual 3.6 X10*3/uL (1.2-4.9); Monocytes Absolute Manual 0.3 X10*3/uL (0.1-1.2); White Blood Count 10.9 X10*3/uL (4.8-10.8)
[2023-07-02 20:12] LABS: Band Neutrophils Percent 0 % (3-5)
--- NOTE | 2023-07-02 22:42 | ED_ITS ---
HPI - Headache General Chief Complaint: Headache Stated Complaint: headache/ Time Seen by Provider: 07/02/23 22:28 Source: patient Mode of arrival: ambulatory Limitations: no limitations History of Present Illness HPI Narrative: Patient is 7 weeks with history of migraine headache complaining of headache on the right side of the head started earlier with slight light sensitivity no nausea no vomiting feels headache same as in the past used to take Excedrin no fever no chills no sore throat or cough Related Data Previous Rx's Medication Instructions Recorded acetaminophen 650 mg 650 mg PO Q8H #60 tabs 09/08/20 tablet,extended release (Tylenol 8 Hour) ibuprofen 800 mg tablet 800 mg PO Q8H #60 tabs 09/08/20 misoprostol 200 mcg tablet 800 mcg (4 x 200 mcg) PO ONCE #4 09/08/20 tabs ondansetron 8 mg disintegrating 8 mg PO Q8H PRN nausea and 09/08/20 tablet vomiting #10 tabs oxycodone 5 mg capsule 5 mg PO Q6H PRN pain #10 caps 09/08/20 acetaminophen 300 mg-codeine 30 mg 1 tab PO BID PRN Severe headache 07/02/23 tablet #20 tabs Allergies Allergy/AdvReac Type Severity Reaction Status Date / Time No Known Allergies Allergy Verified 07/02/23 18:33 [No Known Allergies*] Review of Systems 2 Review of Systems: Yes all other systems are reviewed and are negative [facility] Past Medical History Medical History Abscess of Bartholin's gland Denial Family History Family History Sister Diabetes Father Heart attack Mother Thyroid disease Social History Social History Alcohol intake: never Patient Tobacco Use Status: Never used Tobacco Advance Directives: No Advance Directives Information Provided: No Physical Exam 2 Vital Signs: Vital Signs: Last Vital Signs Temp 98.2 F 07/02/23 18:28 Pulse 80 07/02/23 18:28 Resp 20 07/02/23 18:28 BP 125/82 07/02/23 18:28 Pulse Ox 100 07/02/23 18:28 O2 Del Method Room Air 07/02/23 18:28 BMI result Body Mass Index 24.2 Appearance: Alert. Oriented X3. No acute distress. Eyes: PERRLA, No Nystagmus ENT: Pharynx normal. Oral Mucosa moist no temporal artery tenderness Neck: Normal inspection. Neck supple. CVS: Normal heart rate and rhythm. Pulses normal. Respiratory: No respiratory distress. Equal air entry bilateral, no wheezing/rales/rhonchi Abdomen: Soft and nontender. Bowel sounds are present, no mass palpable, no CVA tenderness Skin: Skin warm and dry. Normal skin color. Normal skin turgor. Extremities: No lower extremity edema. No calf tenderness Neuro: Oriented X 3. No motor deficit. No sensory deficit.No cerebellar signs , cranial nerves II-XII intact Medical Decision Making Medical Decision Making MDM Narrative: Patient with migraine headache 7 weeks who prescribed her Tylenol with codeine severe headache and for routine headache patient feels comfortable discharge patient home Lab Data 07/02/23 19:14 07/02/23 19:14 Labs: Lab Results 07/02/23 Range/Units 19:14 WBC 10.9 H (4.8-10.8) X10*3/uL RBC 4.60 (4.20-5.50) X10*6/uL Hgb 12.9 (12.0-16.0) g/dl Hct 38.8 (37.0-47.0) % MCV 84.3 (80.0-98.0) fL MCH 28.0 (27.0-33.0) pg MCHC 33.2 (31.0-35.0) g/dl RDW 12.7 (11.0-16.0) % Plt Count 211 (160-400) X10*3/uL MPV 12.5 H (9.4-12.3) fL Immature Gran % (Auto) Cancelled Neut % (Auto) Cancelled Lymph % (Auto) Cancelled [place] % (Auto) Cancelled Eos % (Auto) Cancelled Baso % (Auto) Cancelled Lymph # (Auto) Cancelled [place] # (Auto) Cancelled Eos # (Auto) Cancelled Baso # (Auto) Cancelled Abs Immat Gran (auto) Cancelled Absolute Neuts (auto) Cancelled Absolute Nucleated RBC 0.000 (0.0-0.012) X10*3/uL Nucleated RBC % (auto) 0.0 (0.0-0.2) /100WBC Neutrophils % (Manual) 64 (45-73) % Band Neutrophils % 0 L (3-5) % Lymphocytes % (Manual) 33 (20-40) % Monocytes % (Manual) 3 (2-11) % Abs Neuts (Manual) 7.0 (2.0-8.3) X10*3/uL Lymphocytes # (Manual) 3.6 (1.2-4.9) X10*3/uL Monocytes # (Manual) 0.3 (0.1-1.2) X10*3/uL Toxic Vacuolation PRESENT Platelet Estimate NORMAL (NORMAL) Large Platelets PRESENT Plt Morphology Comment NORMAL RBC Morphology NORMAL Sodium 136 (135-145) mmol/L Potassium 3.5 (3.3-5.1) mmol/L Chloride 105 (96-108) mmol/L Carbon Dioxide 22 (22-29) mmol/L Anion Gap 13 (12-20) BUN 9 (9-16) mg/dL Creatinine 0.70 (0.5-1.4) mg/dL Estim Creat Clear Calc 97.0 Estimated GFR > 60 Random Glucose 76 (60-115) mg/dL Calcium 9.6 D (8.4-10.2) mg/dL Total Bilirubin 0.3 (0.0-1.0) mg/dL AST 17 (5-31) U/L ALT 18 (0-31) U/L Alkaline Phosphatase 73 (39-117) U/L Total Protein 8.2 H (6.5-8.0) g/dL Albumin 4.5 (3.5-5.0) g/dL Influenza Type A (PCR) NEGATIVE (Negative) Influenza Type B (PCR) NEGATIVE (Negative) RSV RNA Qual (PCR) NEGATIVE (Negative) SARS-CoV-2 RNA (RT-PCR) NEGATIVE (Negative) Discharge Plan Discharge Clinical Impression: Migraine Patient Disposition: Home, Self-Care Instructions: Migraine Headache (ED) Additional Instructions: Take medication for headache as prescribed You can take Tylenol for body aches and headaches as such Prescriptions: New acetaminophen-codeine 300-30 mg tablet 1 tab PO BID PRN (Reason: Severe headache) Qty: 20 0RF No Action ibuprofen 800 mg tablet 800 mg PO Q8H Qty: 60 0RF acetaminophen [Tylenol 8 Hour] 650 mg tablet extended release 650 mg PO Q8H Qty: 60 0RF misoprostol 200 mcg tablet 800 mcg PO ONCE Qty: 4 1RF oxycodone 5 mg capsule 5 mg PO Q6H PRN (Reason: pain) Qty: 10 0RF ondansetron 8 mg tablet,disintegrating 8 mg PO Q8H PRN (Reason: nausea and vomiting) Qty: 10 0RF Print Language: Jordanian
[2023-07-02 23:32] VITALS: BP 107/69; PULSE 86; RESP 16; TEMP 36.8; O2SAT 99
== END 2023-07-02 23:33 | disposition home or self-care (01) ==
PROVIDERS: Emergency Provider Internal Medicine; PCP Internal Medicine Geriatric Medicine
DX: O26.891 Other specified pregnancy related conditions, first trimester (principal); G43.909 Migraine, unspecified, not intractable, without status migrainosus; Z3A.01 Less than 8 weeks gestation of pregnancy; Z11.52 Encounter for screening for COVID-19; Z20.822 Contact with and (suspected) exposure to COVID-19; Z79.899 Other long term (current) drug therapy
CPT/HCPCS: 0241U; 36415; 80053; 85007; 85027; 99283

== ENCOUNTER 2023-11-21 07:40 | Outpatient (REF) | payer MEDICAID, SELFPAY ==
--- NOTE | ~2023-11-21 | CT_ITS ---
EXAMINATION CT HEAD WITHOUT CONTRAST CLINICAL INFORMATION: Right-sided headache for 6 month COMPARISON: None TECHNIQUE: CT of the head was performed without intravenous contrast. Reformatted axial, coronal, and sagittal images were reviewed. This CT examination was performed using dose optimization techniques as appropriate, variously including the following: *Automated exposure control *Adjustment of mA and/or kV according to patient size (this includes techniques or standardized protocols for targeted exams where dose is matched to indication/reason for exam; i.e. extremities or head) *Use of iterative reconstruction technique DLP: 62 mGy-cm FINDINGS: Large geographic area of encephalomalacia within bilateral frontal (right greater than left) and right temporal lobes, likely from remote injury. No intracranial hemorrhage, extra-axial fluid collection, or midline shift is identified. [place]-white matter differentiation is preserved. The ventricles are within normal limits. Basal cisterns are within normal limits. Paranasal sinuses are clear. Mastoid air cells and middle ear cavities are clear. No acute calvarial fractures. 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 Electronically signed by: Gato Allred DO 12/16/2023 09:03 PM EDT
== END 2023-11-21 07:41 | disposition home or self-care (01) ==
LOC: HO.CT 07:40
PROVIDERS: PCP Internal Medicine Geriatric Medicine; Visit Provider Internal Medicine Geriatric Medicine
DX: R51.9 Headache, unspecified (principal)
CPT/HCPCS: 70450

== ENCOUNTER 2023-12-17 13:48 | Outpatient (REF) | payer MEDICAID, SELFPAY ==
--- NOTE | ~2023-12-17 | XR_ITS ---
EXAMINATION: XR HAND, RIGHT XR HAND, LEFT CLINICAL INFORMATION: Bilateral hand pain, swelling, numbness. COMPARISON: None available. TECHNIQUE: PA, oblique, and lateral views of the right and left hand. FINDINGS: Right Hand: No fracture or dislocation. Normal carpal alignment. No significant joint space narrowing or marginal osteophytes. No osseous erosion. No periarticular osteopenia. No abnormal soft tissue calcification. Left Hand: No fracture or dislocation. Normal carpal alignment. No significant joint space narrowing or marginal osteophytes. No osseous erosion. No periarticular osteopenia. No abnormal soft tissue calcification. XR/XR hand RT min 3V IMPRESSION: RIGHT HAND: Unremarkable examination. LEFT HAND: Unremarkable examination. Electronically signed by: Josiah Martínez MD 12/23/2023 09:51 PM EDT
--- NOTE | ~2023-12-17 | XR_ITS ---
EXAMINATION: XR HAND, RIGHT XR HAND, LEFT CLINICAL INFORMATION: Bilateral hand pain, swelling, numbness. COMPARISON: None available. TECHNIQUE: PA, oblique, and lateral views of the right and left hand. FINDINGS: Right Hand: No fracture or dislocation. Normal carpal alignment. No significant joint space narrowing or marginal osteophytes. No osseous erosion. No periarticular osteopenia. No abnormal soft tissue calcification. Left Hand: No fracture or dislocation. Normal carpal alignment. No significant joint space narrowing or marginal osteophytes. No osseous erosion. No periarticular osteopenia. No abnormal soft tissue calcification. XR/XR hand LT min 3V IMPRESSION: RIGHT HAND: Unremarkable examination. LEFT HAND: Unremarkable examination. Electronically signed by: Josiah Martínez MD 12/23/2023 09:51 PM EDT
[2023-12-17 16:37] LABS: C Reactive Protein 0.46 mg/dL (< or = 0.50)
[2023-12-17 16:49] LABS: Rheumatoid Factor < 13.0 IU/mL (<15.0)
== END 2023-12-17 13:49 | disposition home or self-care (01) ==
LOC: HO.HHCL 13:48
PROVIDERS: Visit Provider Internal Medicine Geriatric Medicine
DX: R20.0 Anesthesia of skin (principal); M79.89 Other specified soft tissue disorders; M79.642 Pain in left hand; M79.641 Pain in right hand
CPT/HCPCS: 36415; 73130; 86140; 86431

== ENCOUNTER 2023-12-25 12:12 | Outpatient (REF) | payer MEDICAID, SELFPAY ==
[2023-12-25 14:46] LABS: HCG Quantitative < 2 mIU/mL
== END 2023-12-25 12:13 | disposition home or self-care (01) ==
LOC: HO.HHCL 12:12
PROVIDERS: Visit Provider Student in an Organized Health Care Education/Training Program
DX: N92.6 Irregular menstruation, unspecified (principal)
CPT/HCPCS: 36415; 84702

== ENCOUNTER 2024-01-14 08:08 | Outpatient (REF) | payer MEDICAID, SELFPAY ==
--- NOTE | 2024-01-14 08:11 | EMG_ITS ---
Bilateral median and ulnar motor and sensory studies were performed. Bilateral radial sensory study was performed. Bilateral median and lateral antecubital brachial sensory studies were performed, and paraspinal muscles were tested with a needle. IMPRESSION: Mild to moderate bilateral median neuropathy across carpal tunnel. MD CHICHI Cooley/ELIZABETH / [id number]
== END 2024-01-14 08:09 | disposition home or self-care (01) ==
LOC: HO.NEURO 08:08
PROVIDERS: PCP Internal Medicine Geriatric Medicine; Visit Provider Internal Medicine Geriatric Medicine
DX: R20.0 Anesthesia of skin (principal); M79.89 Other specified soft tissue disorders
CPT/HCPCS: 95886; 95913

== ENCOUNTER 2024-02-12 08:47 | Outpatient (REF) | payer MEDICAID, SELFPAY ==
--- NOTE | ~2024-02-12 | MM_ITS ---
EXAMINATION: MM SCREENING DIGITAL BREAST TOMOSYNTHESIS, BILATERAL CLINICAL INFORMATION: Screening. Asymptomatic. COMPARISON: Mammography: Comparison is made with available priors TECHNIQUE: Digital breast mammography with tomosynthesis is performed in both the craniocaudal and mediolateral oblique views along with computer-aided detection (CAD). FINDINGS: The breasts are heterogeneously dense, which may obscure small masses (ACR BI-RADS breast composition Category c). There are no significant masses, abnormal calcifications, or other abnormalities. MM/MM tomosynthesis screening BI IMPRESSION: No mammographic evidence of malignancy. ASSESSMENT: BI-RADS BI-RADS 1 - Negative RECOMMENDATION: Routine annual mammography screening. 1 year F/U This examination should not preclude the clinical evaluation of a suspicious palpable abnormality. This patient's information was entered into a reminder system with a target due date for their next mammogram. Electronically signed by: Pallavi Bridges DO 02/20/2024 10:47 AM IL[facility]
== END 2024-02-12 08:48 | disposition home or self-care (01) ==
LOC: HO.MAMMO 08:47
PROVIDERS: PCP Internal Medicine Geriatric Medicine; Visit Provider Internal Medicine Geriatric Medicine
DX: Z12.31 Encounter for screening mammogram for malignant neoplasm of breast (principal)
CPT/HCPCS: 77063; 77067

== ENCOUNTER → 2024-02-12 09:15 | Outpatient (BNV) | payer MEDICAID, SELFPAY | PROVIDERS: PCP Internal Medicine Geriatric Medicine; Visit Provider Internal Medicine | DX: Z12.31 Encounter for screening mammogram for malignant neoplasm of breast (principal) | CPT/HCPCS: 77063; 77067 ==

== ENCOUNTER 2024-03-31 18:01 | Outpatient (REF) | payer MEDICAID, SELFPAY ==
[2024-04-01 11:04] LABS: HPV 16,18/45 See PAP report
== END 2024-03-31 18:02 | disposition home or self-care (01) ==
LOC: HO.LNP 18:01
PROVIDERS: Visit Provider Advanced Practice Midwife
DX: Z12.4 Encounter for screening for malignant neoplasm of cervix (principal)
CPT/HCPCS: 87624; 88175

== ENCOUNTER 2024-06-05 11:24 | Outpatient (AMB) | payer MEDICAID, SELFPAY ==
--- NOTE | 2024-06-05 11:31 | A.OFFVIS_ITS ---
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 Patient reports numbness and tingling on her middle, ring, and small fingers, bilaterally. Patient states symptoms are only present at night. She uses braces at night and at home providing relief of symptoms. 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 Denies finger locking. Denies any prior injuries or surgeries to her hands. Fisher Seal Required: Yes Fisher Seal Language: First Grade Teacher Name: [id number] Information Interpreted: clinical only Allergies No Known Allergies [No Known Allergies*] Allergy (Verified 06/05/24 11:32) HPI HPI RESPIRATORY THERAPY AIDE-B/L Carpal Tunnel Syndrome, EMG done 01/14/24: Details: Carolyn is a 44 year old right hand dominant female who presents today as a new patient for evaluation of bilateral hand carpal tunnel syndrome. Patient reports numbness and tingling on her middle, ring, and small fingers, bilaterally. Patient states symptoms are only present at night. She uses braces at night and at home providing relief of symptoms. 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 Denies finger locking. Denies any prior injuries or surgeries to her hands. 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 Neuro: Normal sensation of the tips of all digits of the bilateral hands at this time Vascular: Cap refill brisk Pain: Patient reports tenderness to palpation over the volar and ulnar aspect of the right wrist ROM: Patient is able to flex extend all digits of bilateral hands fully and without difficulty Skin: No lacerations or abrasions. General: No ecchymosis, erythema, or evidence of infection. Psych: Appears grossly normal Affect normal Attitude cooperative Results Reviewed Results Reviewed: IMPRESSION: Mild to moderate bilateral median neuropathy across carpal tunnel. MD CHICHI Cooley/ELIZABETH Assessment & Plan Assessment & Plan (1) Flexor carpi ulnaris tendinitis: Code(s): M77.8 - Other enthesopathies, not elsewhere classified Category: Medical (2) Bilateral carpal tunnel syndrome: Code(s): G56.03 - Carpal tunnel syndrome, bilateral upper limbs Category: Medical Plan 1. FCU tendinitis Patient is educated about this condition Patient is educated about the typical recovery course At this time, patient is given a Velcro wrist splint to wear when her wrist is particularly bothering her Patient was also referred to occupational therapy for treatment of FCU tendinitis Patient was amenable to this plan 2. Bilateral carpal tunnel syndrome Symptoms intermittent, daily, worse at night Patient was educated about this condition Patient was educated about the typical treatment course At this time, patient would like to hold off on surgical intervention, as she is quite busy at work as a beautician and can not afford to take the time off right now Patient states that she will likely call our office over the summer when her workload has lessened to come in and schedule surgery Patient is educated on the risks of prolonging treatment for carpal tunnel syndrome Patient will follow-up as needed with any acute concerns Orders: Orders OT Evaluation and Treatment Today M77.8 - Other enthesopathies, not elsewhere classified Coding Level of Care Code New Pt Level 3 (35394) Diagnoses Flexor carpi ulnaris tendinitis M77.8 Bilateral carpal tunnel syndrome G56.03
[2024-06-05 11:33] VITALS: BMI 24.2
--- OUTSIDE RECORDS SUMMARY | 2024-06-05 12:32 | XMS_ITS | Encounter Summary ---
Author Organization [employer] Address [address] [place] [address] Care Team Providers Care Harmonic Analyst Name Role Phone Name, Edinson SCHMITZ Primary Care Provider [phone] Encounter Details Date Type Department Care Team (Latest Contact Info) Description 05/06/2024 Travel Social History Tobacco Use Types Packs/Day Years Used Date Smoking Tobacco: Never Passive Smoke Exposure: Never Smokeless Tobacco: Never Alcohol Use Standard Drinks/Week Comments Not Currently 0 (1 standard drink = 0.6 oz pur e alcohol) socially Depression Answer Date Recorded Patient Health Questionnaire-9 Score 8 08/22/2023 Patient Health Questionnaire-9 Score 8 08/22/2023 Last PHQ-9: Questionnaire Data Not on file 0 08/22/2023 Housing Stability Answer Date Recorded What is your housing situation today? I have alina kaur 07/03/[address] you li ve. Do you have problems with any of the following? None of the above 07/03/2023 Food Insecurity Answer Date Recorded Within the past 12 months, y ou worried that your food would run out before you got money to buy more: Never True 07/03/2023 Within the past 12 months,th e food you bought just didn't last and you didn't have enough money to get more: Never True Transportation Answer Date Recorded In the past 12 months, has l ack of transportation kept you from medical appts, meetings, work or from getting things needed for daily living? No 07/03/2023 Utilities Answer Date Recorded In the past 12 months, has t he electric, gas, oil or water company threatened to shut off services in your home? No 07/03/2023 Depression Answer Date Recorded Patient Health Questionnaire-2 Score 4 08/22/2023 Comments No Sex and Gender Information Value Date Recorded Sex Assigned at Female 02/12/2022 10:31 AM EDT Legal Sex Female 10:31 AM EDT Gender Identity Female 02/12/2022 10:31 AM EDT Sexual Orientation Straight 02/12/2022 10 :31 AM EDT documented as of this encounter Plan of Treatment Upcoming Encounters Date Type Department Care Team (Late st Contact Info) Description 10/05/2024 8:00 AM EDT Office Visit [facility] [address] [place] [address] Josefa Lyndsay [address] [place] [address] documented as of this encounter Visit Diagnoses Not on filedocumented in this encounter Additional Health Concerns Assessment Noted Time PHQ-9 Depression Total Score: 8 08/22/19 24 11:33 AM EDT documented as of this encounter Care Teams Harmonic Analyst Relationship Specialty Start Date End Date Name, MD Edinson [address] [place] [address] PCP - General Family Medicine 07/16/16 documented as of this encounter
--- OUTSIDE RECORDS SUMMARY | 2024-06-05 12:32 | XMS_ITS | Encounter Summary ---
Author Organization [employer] [facility] Address [address] [place] [address] [address] [place] [address] Care Team Providers Care Rotor Casting Machine Setup Operator Name Role Phone Name, Edinson SCHMITZ Primary Care Provider [phone] Reason for Visit * Reason Onset Date Comments Appointment Request 05/31/2023 Encounter Details Date Type Department Care Team (Late st Contact Info) Description 05/31/2023 Telephone [facility] MEDICINE [address] [place] [address] Name, MD Edinson [address] [place] [address] Appointment Request Social History Tobacco Use Types Packs/Day Years Used Date Smoking Tobacco: Never Passive Smoke Exposure: Never Smokeless Tobacco: Never Comments Unknown Sex and Gender Information Value Date Recorded Sex Assigned at Female 02/12/2022 10:31 AM EDT Legal Sex Female 10:31 AM EDT Gender Identity Female 02/12/2022 10:31 AM EDT Sexual Orientation Straight 02/12/2022 10 :31 AM EDT documented as of this encounter Miscellaneous Notes * Telephone Encounter - Rubens Villasenor - 05/31/2023 9:50 AM EST Tc from patient calling to request a PE appt last PE was in 12/30/2018 however automobile and property underwriter did not see any availability at the moment documented in this encounter Plan of Treatment Upcoming Encounters Date Type Department Care Team (Late st Contact Info) Description 10/05/2024 8:00 AM EDT Office Visit [facility] ADULT DENTAL [address] [place] [address] Darwin Riveroaris [address] [place] [address] documented as of this encounter Visit Diagnoses Not on filedocumented in this encounter Care Teams Rotor Casting Machine Setup Operator Relationship Specialty Start Date End Date Name, MD Edinson [address] [place] [address] PCP - General Family Medicine 07/16/16 documented as of this encounter
--- OUTSIDE RECORDS SUMMARY | 2024-06-05 12:32 | XMS_ITS | Clinical Summary ---
Author Organization [facility] Address [address] [place] [address] Care Team Providers Care Buyers' Agent Name Role Phone Unavailable Primary Care Provider Unavailabl e Social History Tobacco Use Types Packs/Day Years Used Date Smoking Tobacco: Never Assessed Comments Unknown Sex and Gender Information Value Date Recorded Sex Assigned at Not on file Legal Sex Female 8:24 AM EST Gender Identity Not on file Sexual Orientation Not on file Plan of Treatment Health Maintenance Due Date Last Done Comments Breast Cancer Screening 1980 Hepatitis B Vaccines (1 of 3 - 19+ 3-dose series) 02/06/1999 Cervical Cancer Screening: P ap Smear 02/06/2001 Depression Screening 03/18/2022 HIV Screening 03/18/2022 Hepatitis C Screening 03/18/2022 Social Influencers of Health Screening 03/18/2022 COVID-19 Vaccine ( - 2023-2 5 season) 2023 Influenza Vaccine (#1) 2023 01/11/2020 DTaP,Tdap,and Td Vaccines (3 - Td or Tdap) 06/02/2026 06/02/2016, 04/24/2015 HIB Vaccines Aged Out No longer eligi ble based on patient's age to complete this topic HPV Vaccines Aged Out No longer eligi ble based on patient's age to complete this topic Hepatitis A Vaccines Aged Out No long er eligible based on patient's age to complete this topic IPV Vaccines Aged Out No longer eligi ble based on patient's age to complete this topic MMR Vaccines Aged Out No longer eligi ble based on patient's age to complete this topic Meningococcal ACWY Vaccine Aged Out N o longer eligible based on patient's age to complete this topic Meningococcal B Vacine Aged Out No lo nger eligible based on patient's age to complete this topic Pneumococcal Vaccine: Pediatrics (0 to 5 Years) and At-Risk Patients (6 to 64 Years) Aged Out No longer eligible b ased on patient's age to complete this topic RSV Immunization Patients Under 20 months Aged Out No longer eligible b ased on patient's age to complete this topic Varicella Vaccines Aged Out No longer eligible based on patient's age to complete this topic
--- OUTSIDE RECORDS SUMMARY | 2024-06-05 12:32 | XMS_ITS | Encounter Summary ---
Author Organization [employer] [facility] Address [address] [place] [address] 7 [place] [address] Care Team Providers Care Furnace Caretaker Name Role Phone Edinson Erazo MD Primary Care Provider [phone] Reason for Referral * Consultation (Routine) - Authorized Specialty Diagnoses / Procedures Referred By [place] byrnes Referred To Contact Hand Surgery Diagnoses Carpal tunnel syndrome, unspecified laterality Edinson Erazo MD [address] [place] [address] Phone: tel: fax: [facility] [address] [place] [address] Phone: tel: Referral ID Status Reason Start Date Expiration Date Visits Requested Visits Authorized [id number] Authorized Specialty Services Required 05/13/2024 05/13/2025 6 6 Reason for Visit * Reason Comments Follow-up Encounter Details Date Type Department Care Team (Late st Contact Info) Description 05/13/2024 3:15 PM EST Office Visit [facility] MEDICINE [address] [place] [id number] Edinson Erazo MD [address] [place], [place] [phone] Migraine without aura and without status migrainosus, not intractable (Primary Dx); Carpal tunnel syndrome, unspecified laterality Social History Tobacco Use Types Packs/Day Years [...] AM EDT documented as of this encounter Last Filed Vital Signs Vital Sign Reading Time Taken Comments Blood Pressure 120/75 05/13/2024 3:20 PM EST Pulse 88 05/13/2024 3:20 PM EST Temperature 37.2 ??C (99 ??F) 05/13/2024 3:20 PM EST Respiratory Rate 22 05/13/2024 3:20 PM EST Oxygen Saturation 99% 05/13/2024 3:20 PM EST Inhaled Oxygen Concentration - - Weight 70.6 kg (155 lb 9.6 oz) 05/13/2024 3:20 P M EST Height 167.6 cm (5' 6 ) 05/13/2024 3:20 PM EST Body Mass Index 25.11 05/13/2024 3:20 PM EST documented in this encounter Progress Notes * Edinson Name, - 05/13/2024 3:15 PM EST Subjective Patient ID: Carolyn Leong is a 44 y.o. female who presents for Follow-up. Patient comes for a follow-up visit. Today she complains of recurrent migraines and symptoms of carpal tunnel syndrome. Both complaints are chronic. She was prescribed amitriptyline in the past for migraine prevention but she stopped using the medication because she does not like to take too many medications. She did not have significant side effects with amitriptyline. She describes drowsiness after using amitriptyline but she was taking the medication at night. She responded well to the use of Imitrex. On previous visit she was reluctant to have any intervention for the carpal tunnel syndrome but sheis looking for a referral to hand surgery today. She asked me for a note to take a few days from work and I agreed. 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 Review of Systems Constitutional: Negative for chills and fever. HENT: Negative for sore throat. Respiratory: Negative for cough, shortness of breath and wheezing. Cardiovascular: Negative for chest pain, palpitations and leg swelling. Gastrointestinal: Negative for abdominal pain. Musculoskeletal: See HPI Visit Vitals BP 120/75 (BP Location: Left arm, Patient Position: Sitting, BP Cuff Size: Large adult) Pulse 88 Temp 99 ??F (37.2 ??C) (Oral) Resp 22 Ht 5' 6 (1.676 m) Wt 155 lb 9.6 oz (70.6 kg) SpO2 99% BMI 25.11 kg/m?? OB Status Having periods Smoking Status Never BSA 1.81 m?? Objective Physical Exam Constitutional: Appearance: Normal appearance. Cardiovascular: Rate and Rhythm: Normal rate and regular rhythm. Heart sounds: No murmur heard. No gallop. Pulmonary: Effort: Pulmonary effort is normal. No respiratory distress. Breath sounds: Normal breath sounds. No wheezing. Musculoskeletal: Right lower leg: No edema. Left lower leg: No edema. Neurological: Mental Status: She is alert. Assessment/Plan Diagnoses and all orders for this visit: Migraine without aura and without status migrainosus, not intractable Comments: Restart amitriptyline at bedtime. Continue Imitrex at the onset of the headaches. Carpal tunnel syndrome, unspecified laterality Comments: Referral to hand surgery. Note for work. Orders: - Referral to Hand Surgery; Future Other orders - amitriptyline (Elavil) 10 MG tablet; Take 1 tablet (10 mg) by mouth at bedtime. - SUMAtriptan (Imitrex) 25 MG tablet; Take 1 tablet (25 mg) by mouth 1 (one) time if needed for migraine for up to 27 doses. May repeat dose once in 2 hours if no relief. Do not exceed 2 doses in 24 hours. documented in this encounter Plan of Treatment Upcoming Encounters Date Type Department Care Team (Late st Contact Info) Description 10/05/2024 8:00 AM EDT Office Visit [facility] ADULT DENTAL [address] [place] [address] Josefa, Lyndsay [address] [place] [address] Scheduled Referrals Name Type Priority Associated Diagnoses Orde r Schedule Referral to Hand Surgery Outpatient Referral Routine Carpal tunnel syndrome, unspecified laterality Expected: 05/13/2024 (Approximate), Expires: 05/13/2025 documented as of this encounter Visit Diagnoses Diagnosis Migraine without aura and without status migrainosus, not intractable- Primary Carpal tunnel syndrome, unspecified laterality documented in this encounter Additional Health Concerns Assessment Noted Time PHQ-9 Depression Total Score: 8 08/22/19 24 11:33 AM EDT documented as of this encounter Care Teams Furnace Caretaker Relationship Specialty Start Date End Date Name, MD Edinson [address] [place] [address] PCP - General Family Medicine 07/16/16 documented as of this encounter
--- OUTSIDE RECORDS SUMMARY | 2024-06-05 12:32 | XMS_ITS | Encounter Summary ---
Author Organization [employer] [facility] Address [address] [place] [address] [address] [place] [address] Care Team Providers Care Pie Filler Name Role Phone Name, Edinson SCHMITZ Primary Care Provider Encounter Details Date Type Department Care Team (Late st Contact Info) Description 04/18/2022 Orders Only [facility] [address] [place] [address] Afshan Cristina LPN Social History Tobacco Use Types Packs/Day Years [...] Description 10/05/2024 8:00 AM EDT Office Visit [facility] ADULT DENTAL [address] [place] [address] Josefa, Lyndsay [address] [place] [address] documented as of this encounter Visit Diagnoses Not on filedocumented in this encounter Care Teams Pie Filler Relationship Specialty Start Date End Date Name, MD Edinson [address] [place] [address] PCP - General Family Medicine 07/16/16 documented as of this encounter
--- OUTSIDE RECORDS SUMMARY | 2024-06-05 12:32 | XMS_ITS | Encounter Summary ---
Author Organization [employer] Address [address] [place] [address] Care Team Providers Care Hall Cleaner Name Role Phone Name, Edinson SCHMITZ Primary Care Provider [phone] Encounter Details Date Type Department Care Team ([facility] st Contact Info) Description 01/29/2024 Orders Only [facility] MED[facility] [address] [place] [address] Provider, MD Bora Social History Tobacco Use Types Packs/Day Years Used Date Smoking Tobacco: Never Passive Smoke Exposure: Never Smokeless Tobacco: Never Alcohol Use Standard Drinks/Week Comments Yes 0 (1 standard drink = 0.6 oz pur e alcohol) socially Depression Answer Date Recorded Patient Health Questionnaire-9 Score 8 08/22/2023 Patient Health Questionnaire-9 Score 8 08/22/2023 Last PHQ-9: Questionnaire Data Not on file 0 08/22/2023 Housing Stability Answer Date Recorded What is your housing situation today? I have alina vincent 07/03/[address] you li [...] Description 10/05/2024 8:00 AM EDT Office Visit [facility] ADULT DENTAL [address] [place] [address] Josefa, Lyndsay [address] [place] [address] documented as of this encounter Procedures Procedure Name Priority Date/Time Associated Diagnosis Comments HM PAP/HPV Routine 01/20/2021 11:37 AM EDT documented in this encounter Results * HM PAP/HPV (01/20/2021 11:37 AM EDT) us Historical Provider HEALTH MAINTENANCE Final Result documented in this encounter Visit Diagnoses Not on filedocumented in this encounter Additional Health Concerns Assessment Noted Time PHQ-9 Depression Total Score: 8 08/22/19 24 11:33 AM EDT documented as of this encounter Care Teams Hall Cleaner Relationship Specialty Start Date End Date Name, MD Edinson [address] [place] [address] PCP - General Family Medicine 07/16/16 documented as of this encounter
--- OUTSIDE RECORDS SUMMARY | 2024-06-05 12:32 | XMS_ITS | Encounter Summary ---
Author Organization [facility] Address [address] [place] [address] [address] [place] [address] Care Team Providers Care Auto Parts Delivery Driver Name Role Phone Name, Edinson SCHMITZ Primary Care Provider [phone] Encounter Details Date Type Department Care Team (Latest Contact Info) Description 12/21/2020 Abstract [facility] CONVERSIONS Dental, Provider, DDS Social History Tobacco Use Types Packs/Day Years [...] Description 10/05/2024 8:00 AM EDT Office Visit [facility] ADULT DENTAL [address] [place] [address] Josefa, Lyndsay [address] [place] [address] documented as of this encounter Visit Diagnoses Not on filedocumented in this encounter Care Teams Auto Parts Delivery Driver Relationship Specialty Start Date End Date Name, MD Edinson [address] [place] [address] PCP - General Family Medicine 07/16/16 documented as of this encounter
--- OUTSIDE RECORDS SUMMARY | 2024-06-05 12:32 | XMS_ITS | Encounter Summary ---
Author Organization [employer] [facility] Address [address] [place] [address] 7 [place] [address] Care Team Providers Care Printed Circuit Board Assembly Repairer Name Role Phone Name, Edinson SCHMITZ Primary Care Provider [phone] Encounter Details Date Type Department Care Team (Latest Contact Info) Description 09/29/2018 Abstract [facility] CONVERSIONS Dental, Provider, DDS Social [...] Description 10/05/2024 8:00 AM EDT Office Visit [facility] ADULT DENTAL [address] [place] [address] Josefa, Lyndsay [address] [place] [address] documented as of this encounter Visit Diagnoses Not on filedocumented in this encounter Care Teams Printed Circuit Board Assembly Repairer Relationship Specialty Start Date End Date Name, MD Edinson [address] [place] [address] PCP - General Family Medicine 07/16/16 documented as of this encounter
--- OUTSIDE RECORDS SUMMARY | 2024-06-05 12:32 | XMS_ITS | Clinical Summary ---
Author Organization [employer] Address [address] [facility] 7t [place] [address] Care Team Providers Care Clinical Informatics Educator Name Role Phone Name, Edinson SCHMITZ Primary Care Provider [phone] Allergies No known active allergies Medications * This document contains information received from the source organization and may not represent a complete record from that organization. cetirizine (ZyrTEC) 10 MG tabletIndicati ons:Flu-like symptoms Take 1 tablet (10 mg) by mouth Once per day. 30 tablet 09/03/19 24 Active celecoxib (CeleBREX) 200 MG capsuleIndicat ions:Numbness of hand,Bilateral hand swelling TAKE 1 CAPSULE BY MOUTH TWICE DAILY FOR 20 DAYS 40 capsule 01/08/20 24 Active Drospirenone (Slynd) 4 MG tablet Take 1 tablet by mouth Once per day. 28 tablet 11 03/31/20 24 Active amitriptyline (Elavil) 10 MG tablet Take 1 tablet (10 mg) by mouth at bedtime. 30 tablet 11 05/13/19 25 026 Active SUMAtriptan (Imitrex) 25 MG tablet Take 1 tablet (25 mg) by mouth 1 (one) time if needed for migraine for up to 27 doses. May repeat dose once in 2 hours if no relief. Do not exceed 2 doses in 24 hours. 9 tablet 2 05/13/19 25 Active amitriptyline (Elavil) 10 MG tablet Take 1 tablet (10 mg) by mouth at bedtime. 30 tablet 2 10/23/19 24 025 Discontinued(Re order (will not trigger notification to Pharmacy)) SUMAtriptan (Imitrex) 25 MG tablet Take 1 tablet (25 mg) by mouth 1 (one) time if needed for migraine for up to 1 dose. May repeat dose once in 2 hours if no relief. Do not exceed 2 doses in 24 hours. 9 tablet 2 10/23/19 24 025 Discontinued(Re order (will not trigger notification to Pharmacy)) Active Problems Problem Noted Date Diagnosed Date Upper respiratory infection, viral 09/03/2023 Flu-like symptoms 09/03/2023 Assessment & Plan (09/03/2023 9:54 AM EDT): Drink plenty of fluids and rest Anemia 08/16/2023 COVID-19 08/16/2023 Gastritis 08/16/2023 History of miscarriage 08/16/2023 Assessment & Plan (08/22/2023 11:43 AM EDT): During IBH Consult Carolyn presenting with depressed mood, loss of interests/pleasure , changes in sleep difficulty staying asleep , trouble concentrating, thoughts of worthlessness or guilt, fatigue/loss of energy, inappropriate guilt , hopelessness, worthlessness , difficulty concentrating; for a period of 0-6 mo, for all symptoms in the context of and relationship issues. Carolyn is having a difficult time after experiencing a fourth miscarriage. She feels emotionally overwhelmed and confused. Receives positive support from family and friends. Able to self-manage with coping mechanisms and receiving positive support from network. PLAN: (check all that apply) Further services needed, but declined Behavioral Health Integration Plan Patient Self Plan Patient to utilize skills provided in intervention , Patient to reach out to [facility] team as needed, Patient to engage in OP therapy , and Patient to reach out to [facility] as needed Pain in female pelvis 08/16/2023 Uterine leiomyoma 08/16/2023 Current mild episode of mercedes r depressive disorder without prior episode 07/31/2023 Overview (08/05/2023): During IBH Consult Carolyn presenting with depressed mood, loss of interests/pleasure , changes in sleep difficulty falling asleep, thoughts of worthlessness or guilt, inappropriate guilt ; for a period of 0-6 mo, for all symptoms in the context of miscarriage . Carolyn is having a difficult time after experiencing her fourth miscarriage. She feels emotionally overwhelmed and confused. Receives positive support from family and friends. PLAN: (check all that apply) Further services needed, but declined Behavioral Health Integration Plan Patient Self Plan Patient to utilize skills provided in intervention , Patient to reach out to [facility] team as needed, and Patient to reach out to [facility] as needed. OP referral pending as patient is still contemplating the idea of receiving extra support for MH. Information provided to patient in case she changes her mind. Assessment & Plan (08/22/2023 11:43 AM EDT): During IBH Consult Carolyn presenting with depressed mood, loss of interests/pleasure , changes in sleep difficulty staying asleep , trouble concentrating, thoughts of worthlessness or guilt, fatigue/loss of energy, inappropriate guilt , hopelessness, worthlessness , difficulty concentrating; for a period of 0-6 mo, for all symptoms in the context of and relationship issues. Carolyn is having a difficult time after experiencing a fourth miscarriage. She feels emotionally overwhelmed and confused. Receives positive support from family and friends. Able to self-manage with coping mechanisms and receiving positive support from network. PLAN: (check all that apply) Further services needed, but declined Behavioral Health Integration Plan Patient Self Plan Patient to utilize skills provided in intervention , Patient to reach out to [facility] team as needed, Patient to engage in OP therapy , and Patient to reach out to [facility] as needed Dental plaque 06/20/2023 Dental caries 06/20/2023 Localized gingival recession 06/20/2023 Gingival recession, generalized 04/25/2022 Numbness of hand 01/21/2017 Tired 01/21/2017 Encounters Date Type Department Care Team Description 05/13/2024 3:15 PM EST Office Visit [facility] [address] [place] [phone] Name, MD Edinson Migraine without aura and without status migrainosus, not intractable (Primary Dx); Carpal tunnel syndrome, unspecified laterality 05/06/2024 Travel 03/31/2024 1:45 PM EST Procedure Visit [address] [address] Sarah Chand CNM Cervical cancer screening (Primary Dx); Family planning counseling 03/31/2024 Travel 03/24/2024 Travel 03/17/2024 Refill [facility] [address] [place] [address] [phone] Name, MD Edinson 03/08/2024 Travel from Last 3 Months Immunizations Name Administration Dates Next Due Influenza injectable quadrivalent preservative f ree 01/29/2022,01/11/2020 Influenza, IIV3, injectable 01/29/2022, 0 Influenza, seasonal, injectable, preservative fr ee 02/17/2024 SARS-CoV-2, Unspecified 01/29/2022 TD (adult), 2 Lf tetanus tox oid, preservative free, adsorbed 04/24/2015 Td (adult), 5 Lf tetanus tox oid, preservative free, adsorbed 06/02/2016 Td (adult), unspecified 04/24/2015 Social History Tobacco Use Types Packs/Day Years Used Date Smoking Tobacco: Never Passive Smoke Exposure: Never Smokeless Tobacco: Never Tobacco Cessation:Counseling Given: Not Answered Alcohol Use Standard Drinks/Week Comments Not Currently [...] t he electric, gas, oil or water [employer] threatened to shut off services in your home? No 07/03/2023 Depression Answer Date Recorded Patient Health Questionnaire-2 Score 4 08/22/2023 Comments No Sex and Gender Information Value Date Recorded Sex Assigned at Female 02/12/2022 10:31 AM EDT Legal Sex Female 10:31 AM EDT Gender Identity Female 02/12/2022 10:31 AM EDT Sexual Orientation Straight 02/12/2022 10 :31 AM EDT Last Filed Vital Signs Vital Sign Reading [...] Mass Index 25.11 05/13/2024 3:20 PM EST Plan of Treatment Upcoming Encounters Date Type Department Care Team (Late st Contact Info) Description 10/05/2024 8:00 AM EDT Office Visit [facility] [address] [place] [address] Josefa, Lyndsay [address] [place] [address] Health Maintenance Due Date Last Done Comments HIV Screening 1980 Hepatitis C Screening 02/06/1998 Hepatitis B Vaccines (1 of 3 - 19+ 3-dose series) 02/06/1999 DTaP/Tdap/Td Vaccines (1 - Tdap) 06/03/2016 06/02/2016, 04/24/2015, 04/24/2015 Dental X-Ray: Bitewings 04/26/2023 04/25/2022 COVID-19 Vaccine ( season) 2023 01/29/2022, 05/18/2021, 08/22/2020, Additional history exists Dental Oral Exam 12/22/2023 06/20/2023, 04/25/2022 Dental Prophylaxis 12/22/2023 06/20/2023, 0 11/01/2022, 04/25/2022 SDOH Screening 07/02/2024 07/03/2023 Depression Screening 08/21/2024 08/22/2023, 08/22/19 Alcohol/Substance Use Screening 02/16/2025 02/17/2024 Family Planning (PISQ) 03/31/2025 03/31/2024 Dental X-Ray: Full Mouth 04/26/2025 04/25/2022 Tobacco Screening 05/13/2025 05/13/2024 Mammogram 02/11/2026 02/12/2024, 01/14, 02/06/2023, Additional history exists Cervical Cancer Screening 03/31/2029 HPV/Cotest 03/31/2029 03/04/2019 Pap Smear 03/31/2029 03/31/2024, 01/20/2021 Zoster Vaccines (1 of 2) 02/06/2030 RSV Patients and Patients Aged 60 years or older (1 - 1-dose 75+ series) 02/06/2055 Influenza Vaccine Completed 02/17/2024, , 01/29/2022, Additional history exists HIB Vaccines Aged Out No longer eligi [...] patient's age to complete this topic Meningococcal Vaccine Aged Out No genie varsha eligible based on patient's age to complete this topic Pneumococcal Vaccine: Pediatrics (0 to 5 Years) and At-Risk Patients (6 to 49) Years) Aged Out No longer eligible based on patient's age to complete this topic RSV under 20 months Aged Out No longe r eligible based on patient's age to complete this topic Rotavirus Vaccines Aged Out No longer eligible based on patient's age to complete this topic Procedures Procedure Name Priority Date/Time Associated Diagnosis Comments PAP SMEAR Routine 03/31/2024 2:23 PM EST Cervical cancer screening BI MAMMOGRAM SCREENING TOMOSYNTHESIS BILATERAL Routine 02/12/2024 8:55 AM EDT PROPHYLAXIS - ADULT Routine 06/20/2023 8 :00 AM EST PERIODIC ORAL EVALUATION - ESTABLISHED PATIENT Routine 06/20/2023 8:00 AM EST INTRAORAL - COMPLETE SERIES OF RADIOGRAPHIC IMAGES Routine 04/25/2022 10:00 AM EST TONYA HISTORICAL HPV MRNA E6/E7 Routine 03/04/2019 9:51 AM EST from Last 3 Months or Most Recently Relevant to Health Maintenance Results * Pap Smear (03/31/2024 2:23 PM EST) Swab Cervix uteri structure / Unknown 03/31/2024 2:23 PM EST 04/01/2024 9:30 AM EST [facility] - 04/06/2024 9:35 AM EST ----- ------- Name: Carolyn Rondon ?Age/Sex: 44/F ? : 1980 Unit#: [id number] ?? Attend Dr: SARAH CHAND Pat ?Re03/31/24 ?Status: DEP REF ? Location: HO.LNP ?Disch: ? ----- ------- SPEC : [id number] ?RECD: 04/01/24 ? STATUS: ??SOUT ? REQ NUM: [id number] ? MASON: 03/31/24 ? SUBM DR: SARAH CHAND CNM ? ENTERED: ??04/01/24 ?SP TYPE: Pap Smr ?OTHR : ? ORDERED: ??Pap Smear ? Interpretation ?? Satisfactory for evaluation. ?? Negative for intraepithelial lesion or malignancy. ?? No endocervical cells seen. ? HPV High Risk: ??Negative ? HPV Genotyping 16: ??Negative ?? HPV Genotyping 18: ??Negative ?Clinical Information LMP: 03/18/2024 Previous PAP test: 2019, WNL Other history: Oral contraceptive ? Material Received ?? ThinPrep-Cervical ----- ------- Signed (signature on file) EASTON Carreon ([facility]) 04/06/24 0935 ? ----- ------- ? END OF REPORT ? us Sarah Chand CN LAB CYTOLOGY ORDERABLES F inal Result [facility] [address] [place] [address] [phone] * BI Mammogram Screening Tomosynthesis Bilateral (02/12/2024 8:55 AM EDT) Anatomical Region Laterality Modality Breast Bilateral Mammography 02/12/2024 8:55 AM EDT Narrative 02/20/2024 10:50 AM EST ? [facility] ? [address] [facility] ?[place] [address] ? Mammography Report ? Signed ? Patient: Vern Leong,Carolyn ?MR#: [id number] ?? [id number] ? : 1980 ?Acct:[id number] ? Age/Sex: 44 / F ?ADM Date: 10/30/24 ? Loc: HO.MAMMO ? Attending Dr: Edinson Name MD ? Ordering Physician: Name,Edinson MD ?Results: 1Negative ? Date of Service: 02/12/24 ?Follow Up: 1 Year From Orig ?? inal Mammogram ? Procedure(s): MM tomosynthesis screening BI ?? Accession Number(s): [id number] ? cc: Name,Edinson SCHMITZ ? EXAMINATION: ?? MM SCREENING DIGITAL BREAST TOMOSYNTHESIS, BILATERAL ? CLINICAL INFORMATION: ? Screening. Asymptomatic. ? COMPARISON: ?? Mammography: Comparison is made with available priors ? TECHNIQUE: ?? Digital breast mammography with tomosynthesis is performed in both the ?? craniocaudal and mediolateral oblique views along with computer-aided ?? detection (CAD). ? FINDINGS: ?? The breasts are heterogeneously dense, which may obscure small masses ?? (ACR BI-RADS breast composition Category c). ? There are no significant masses, abnormal calcifications, or other ?? abnormalities. ? MM/MM tomosynthesis screening BI ?? IMPRESSION: ?? No mammographic evidence of malignancy. ? ASSESSMENT: ? BI-RADS BI-RADS 1 - Negative ? RECOMMENDATION: ?? Routine annual mammography screening. ? 1 year F/U ? This examination should not preclude the clinical evaluation of a ?? suspicious palpable abnormality. ? This patient's information was entered into a reminder system with a ?? target due date for their next mammogram. ? Electronically signed by: ??Pallavi Bridges DO ??02/20/2024 10:47 AM EST ?? RP ? Dictated By: ?Pallavi Bridges DO ? Signed By: ?<Electronically signed by Pallavi Bridges, DO in OV> ? 02/20/247 ? DD/ 0855 ? TD/TT: 02/12/24 0905 ? Rail Director: ? Procedure Note Donotuseinterpreter, Image - 02/20/2024 [facility] [address] [place] [address] Mammography Report Signed Patient: Gosia Rondon#: [id number] : 1980Acct:[id number] Age/Sex: 44 / FADM Date: 02/12/24 Loc: HO.MAMMO Attending Dr: Edinson Erazo MD Ordering Physician: Edinson Erazo MDResults: 1Negative Date of Service: 02/12/24Follow Up: 1 Year From Orig inal Mammogram Procedure(s): MM tomosynthesis screening BI Accession Number(s): [id number] cc: Edinson Erazo MD EXAMINATION: MM SCREENING DIGITAL BREAST TOMOSYNTHESIS, BILATERAL CLINICAL INFORMATION: Screening. Asymptomatic. COMPARISON: Mammography: Comparison is made with available priors TECHNIQUE: Digital breast mammography with tomosynthesis is performed in both the craniocaudal and mediolateral oblique views along with computer-aided detection (CAD). FINDINGS: The breasts are heterogeneously dense, which may obscure small masses (ACR BI-RADS breast composition Category c). There are no significant masses, abnormal calcifications, or other abnormalities. MM/MM tomosynthesis screening BI IMPRESSION: No mammographic evidence of malignancy. ASSESSMENT: BI-RADS BI-RADS 1 - Negative RECOMMENDATION: Routine annual mammography screening. 1 year F/U This examination should not preclude the clinical evaluation of a suspicious palpable abnormality. This patient's information was entered into a reminder system with a target due date for their next mammogram. Electronically signed by: Pallavi Bridges DO 02/20/2024 10:47 AM EST Dictated By: Pallavi Bridges DO Signed By: <Electronically signed by Pallavi Bridges DO in OV> 02/20/24 1047 DD/ 0855 TD/TT: 02/12/24 0905 Rail Director: Edinson Erazo MD IM BI PROCEDURES Edited Result - Final * HPV mRNA E6/E7 (03/04/2019 9:51 AM EST) HPV mRNA E6/E7 Not Detected NOT DETECTED [facility] Comment: This test was performed using the APTIMA(R) HPV Assay ([employer] This assay detects E6/E7 viral messenger RNA (mRNA) from 14 high-risk HPV types (16,18,31,33,35,39,45,51, 52,56,58,59,66,68). For additional information please refer to: http://education.[employer]/faq/YHE620m3 (This link is being provided for informational/ educational purposes only.) The analytical performance characteristics of this assay have been determined by [employer] [place], [place]. The modifications have not been cleared or approved by the FDA. This assay has been validated pursuant to the CLIA regulations and is used for clinical purposes. [facility], [facility], [address] [place] [address] Frank Person M.D., Ph.D., Director of Laboratories , CLIA [id number] Please note: ??Effective 12/26/2015, HPV testing will be performed using [employer] APTIMA test which targets mRNA. Detecting mRNA instead of DNA, as in older methods, offers significant improvements in specificity. 03/04/2019 9:51 AM EST Sarah Chand CNM HISTORICAL/NON ORDERABLE LABS Final Result [facility] [address] from Last 3 Months or Most Recently Relevant to Health Maintenance Insurance [facility] C3 DENTAL-[facility] MEDICAID STAND ADULT Care Teams Clinical Informatics Educator Relationship Specialty Start Date End Date Name, MD Edinson [address] [place] [address] PCP - General Family Medicine 07/16/16
== END 2024-06-05 12:10 | disposition home or self-care (01) ==
PROVIDERS: PCP Internal Medicine Geriatric Medicine
DX: M77.8 Other enthesopathies, not elsewhere classified (principal); G56.03 Carpal tunnel syndrome, bilateral upper limbs
CPT/HCPCS: 99203

== ENCOUNTER → 2024-06-05 11:24 | Outpatient (BNVA) | payer MEDICAID, SELFPAY | PROVIDERS: PCP Internal Medicine Geriatric Medicine | DX: M77.8 Other enthesopathies, not elsewhere classified (principal); G56.03 Carpal tunnel syndrome, bilateral upper limbs | CPT/HCPCS: 99212 ==

== ENCOUNTER 2024-10-14 08:56 | Outpatient (REF) | payer MEDICAID, SELFPAY ==
--- OUTSIDE RECORDS SUMMARY | 2024-10-14 09:04 | XMS_ITS | Clinical Summary ---
Author Organization [employer] [facility] ity Address [address] [place] [address] Care Team Providers Care Salsa Dance Instructor Name Role Phone Unavailable Primary Care Provider [...] Influencers of Health Screening 03/18/2022 COVID-19 Vaccine (2023-2 5 season) 2023 Influenza Vaccine (Season Ended) 2024 01/11/2020 DTaP,Tdap,and Td Vaccines (3 - Td [...] age to complete this topic Meningococcal B Vaccine Aged Out No l onger eligible based on patient's age to complete [...]
--- OUTSIDE RECORDS SUMMARY | 2024-10-14 09:04 | XMS_ITS | Encounter Summary ---
Author Organization [employer] Address [address] [facility] [address] [place] [address] Care Team Providers Care Inside Finisher Name Role Phone Name, Edinson SCHMITZ Primary Care Provider [phone] Encounter Details Date Type Department Care Team ([facility] st Contact Info) Description 08/11/2024 Orders Only [facility] [address] [place], [place] [phone] Palak Winters Social History Tobacco Use Types Packs/Day Years [...] Care Team (Late st Contact Info) Description 11/04/2024 1:30 PM EDT Office Visit [facility] [address] [place] [address] Vijay Douglas DDS [address] [place] [address] 04/21/2025 1:00 PM EST Office Visit [facility] [address] [place] [address] Lyndsay Rivero [address] [place] [address] documented as of this encounter Procedures Procedure Name Priority Date/Time Associated Diagnosis Comments HPV MRNA E6/E7 REFLEX TO HPV 16, 18/45 Routine 03/31/2024 12:00 AM EST documented in this encounter Results * HPV mRNA E6/E7 w/Reflex to HPV Genotypes 16, 18/45 (03/31/2024 12:00 AM EST) Historical Provider LAB CYTOLOGY ORDERABLES F inal Result documented in this encounter Visit Diagnoses Not on filedocumented in this encounter Additional Health Concerns Assessment Noted Time PHQ-9 Depression Total Score: 8 08/22/19 24 11:33 AM EDT documented as of this encounter Care Teams Inside Finisher Relationship Specialty Start Date End Date Name, MD Edinson [address] [place] [id number] PCP - General Family Medicine 07/16/16 documented as of this encounter
[2024-10-14 12:31] LABS: Alanine Aminotransferase 15 U/L (0-31); Albumin Level 4.0 g/dL (3.5-5.0); Alkaline Phosphatase 86 U/L (39-117); Anion Gap 11 (12-20); Aspartate Amino Transferase 18 U/L (5-31); Blood Urea Nitrogen 12 mg/dL (9-16); Calcium 8.7 mg/dL (8.4-10.2); Carbon Dioxide 24 mmol/L (22-29); Chloride 106 mmol/L (96-108); Cholesterol 157 mg/dL (<200); Estimated Glomerular Filt Rate > 60; HDL Cholesterol 60 mg/dL (>40); Potassium 4.1 mmol/L (3.3-5.1); Sodium 137 mmol/L (135-145); Total Protein 7.4 g/dL (6.5-8.0); Triglycerides 93 mg/dL (<150)
== END 2024-10-14 08:57 | disposition home or self-care (01) ==
LOC: HO.HHCL 08:56
PROVIDERS: PCP Internal Medicine Geriatric Medicine; Visit Provider Internal Medicine Geriatric Medicine
DX: Z13.1 Encounter for screening for diabetes mellitus (principal); Z13.220 Encounter for screening for lipoid disorders
CPT/HCPCS: 36415; 80053; 80061